=== PATIENT | male | born 1985 ===

== ENCOUNTER 2016-12-19 04:56 | Observation (INO) | payer MEDICAID ==
--- NOTE | 2016-12-19 05:15 | C.PDOC ---
History Of Present Illness Patient was brought to the ED by ambulance following a suicide attempt by hanging. 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 Patient's mother stepped outside of the house, when she went back in saw patient wrapping cord around his neck and jumped off railing. Mother was able to dislodge the cord and patient dropped one food to the ground. Patient denies any other complaints at this time. Time Seen by Provider: 12/19/16 05:10 Chief Complaint (Nursing): Psychiatric Evaluation History Per: Patient, Family History/Exam Limitations: no limitations Suicide/Self Injury Attempted (Context): Other (hanging ) Associated Symptoms: Depression, Suicidal Thoughts, Suicidal Plan Recent travel outside of the [place]: No Past Medical History Reviewed: Historical Data, Nursing Documentation, Vital Signs Vital Signs: Last Vital Signs Temp 97.7 F 12/19/16 05:04 Pulse 90 12/19/16 05:04 Resp 16 12/19/16 05:04 BP 135/90 12/19/16 05:04 Pulse Ox 97 12/19/16 05:55 - Medical History PMH: Depression Family History: States: No Known Family Hx - Social History Hx Alcohol Use: Yes Hx Substance Use: Yes - Immunization History Hx Tetanus Toxoid Vaccination: No Hx Influenza Vaccination: No Hx Pneumococcal Vaccination: No Review Of Systems Constitutional: Negative for: Fever, Chills, Sweats Eyes: Negative for: Vision Change Cardiovascular: Negative for: Chest Pain, Palpitations Respiratory: Negative for: Cough, Shortness of Breath Gastrointestinal: Negative for: Nausea, Vomiting, Abdominal Pain, Diarrhea Psych: Positive for: Depression, Suicidal ideation Physical Exam - Physical Exam Appears: Non-toxic, No Acute Distress Skin: Warm, Dry Head: Atraumatic Eye(s): bilateral: Normal Inspection, PERRL, EOMI Ear(s): Bilateral: Normal Oral Mucosa: Moist Neck: Supple (no evidence of hernandez on neck) Cardiovascular: Rhythm Regular Respiratory: No Rales, No Rhonchi, No Stridor, No Wheezing Gastrointestinal/Abdominal: Soft, No Tenderness, No Distention, No Guarding, No Rebound Back: Normal Inspection Extremity: No Tenderness, No Pedal Edema Extremity: Bilateral: Normal Color And Temperature Neurological/Psych: Oriented x3, Normal Speech, Normal Cognition, Other ( weakness to right side of the body ) Gait: With Assistance Additional Physical Exam Comments: Tolerating own secretions. ED Course And Treatment - Laboratory Results Result Diagrams: 12/19/16 05:33 12/19/16 05:33 ECG: Interpreted By Me O2 Sat by Pulse Oximetry: 97 Pulse Ox Interpretation: Normal - Radiology CXR: Interpreted by Me, Viewed By Me CXR Interpretation: No: Infiltrates, Fracture, Pnemothorax Progress Note: pt self removed the collar prior to ct imaging ED OBSERVATION Date of observation admission: 12/19/16 Time of observation admission: 06:47 Disposition Counseled Patient/Family Regarding: Studies Performed, Diagnosis - Disposition Disposition Time: 05:15 Condition: UNKNOWN - Clinical Impression Clinical Impression: Suicide attempt - Scribe Statement The provider has reviewed the documentation as recorded by the Scribe Floresita Atkinson All medical record entries made by the Scribe were at my direction and personally dictated by me. I have reviewed the chart and agree that the record accurately reflects my personal performance of the history, physical exam, medical decision making, and the department course for this patient. I have also personally directed, reviewed, and agree with the discharge instructions and disposition.
[2016-12-19 05:29] LABS: RBC URINE < 1 /hpf (0-3); URINE BACTERIA RARE (<OCC); URINE BILIRUBIN NEGATIVE (NEGATIVE); URINE BLOOD NEGATIVE (NEGATIVE); URINE COLOR Colorless (YELLOW); URINE GLUCOSE (UA) NORMAL (Normal); URINE KETONE NEGATIVE (NEGATIVE); URINE LEUKOCYTE ESTERASE NEG Leu/uL (Negative); URINE PROTEIN NEGATIVE (NEGATIVE); URINE UROBILINOGEN NORMAL mg/dL (0.2-1.0); WBC URINE 3 /hpf (0-5)
[2016-12-19 05:36] LABS: BASO # 0.1 K/uL (0.0-0.2); BASO % 0.9 % (0.0-2.0); EOS # 0.1 K/uL (0.0-0.7); EOS % 1.6 % (0.0-4.0); HEMATOCRIT 42.2 % (35.0-51.0); LYMPH # 3.4 K/uL (1.0-4.3); LYMPH % 43.4 % (20.0-40.0); MEAN CELL VOLUME 88.2 fL (80.0-94.0); MEAN CORPUSCULAR HEMOGLOBIN 30.8 pg (27.0-31.0); MEAN CORPUSCULAR HGB CONC 34.9 g/dL (33.0-37.0); MEAN PLATELET VOLUME 7.4 fL (7.2-11.7); MONO # 0.4 K/uL (0.0-0.8); MONO % 5.6 % (0.0-10.0); RED CELL DISTRIBUTION WIDTH 13.1 % (11.5-14.5); WHITE BLOOD COUNT 7.8 K/uL (4.8-10.8)
[2016-12-19 05:46] LABS: CHLORIDE 101 mmol/L (98-107)
[2016-12-19 05:47] LABS: SODIUM 143 mmol/L (132-148)
[2016-12-19 05:48] LABS: POTASSIUM 3.8 mmol/L (3.6-5.2)
[2016-12-19 05:50] LABS: ALB/GLOB RATIO 1.8 (1.0-2.1); ALKALINE PHOSPHATASE 95 U/L (38-126); ALT/SGPT 49 U/L (21-72); AST/SGOT 61 U/L (17-59); BILIRUBIN,TOTAL 0.4 mg/dL (0.2-1.3); BLOOD UREA NITROGEN 7 mg/dL (9-20); CARBON DIOXIDE 27 mmol/L (22-30); GFR AFRICAN-AMERICAN > 60; GLUCOSE,RANDOM 106 mg/dL (75-110); TOTAL PROTEIN 7.8 g/dL (6.3-8.3)
[2016-12-19 05:51] LABS: ALCOHOL SERUM 199 mg/dl (0-10); CALCIUM 8.8 mg/dl (8.6-10.4)
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
--- NOTE | 2016-12-19 07:21 | RAD ---
PROCEDURE: CHEST RADIOGRAPH, 1 VIEW HISTORY: Detox/Psy COMPARISON: None available. FINDINGS: LUNGS: Clear. PLEURA: No pneumothorax or pleural fluid seen. CARDIOVASCULAR: Normal. OSSEOUS STRUCTURES: No significant abnormalities. VISUALIZED UPPER ABDOMEN: Normal. OTHER FINDINGS: None. IMPRESSION: No active disease.
[2016-12-19 08:55] VITALS: BP 120/78; PULSE 94; RESP 18; TEMP 97.5; O2SAT 97
== END 2016-12-19 08:44 | disposition home or self-care (01) ==
LOC: C.ER 04:56 → C.9OBSV 06:46
PROVIDERS: ADMIT Emergency Medicine; ATTEND Emergency Medicine
DX: F10.120 Alcohol abuse with intoxication, uncomplicated (principal); T14.91 Suicide attempt; F14.10 Cocaine abuse, uncomplicated; Y90.6 Blood alcohol level of 120-199 mg/100 ml; I69.251 Hemiplegia and hemiparesis following other nontraumatic intracranial hemorrhage affecting right dominant side
CPT/HCPCS: 70450; 71010; 72125; 80053; 80320; 80324; 80345; 80346; 80349; 80353; 80358; 80361; 81001; 83992; 85025; 99285; G0378

== ENCOUNTER 2017-01-30 08:17 | Inpatient (IN) | payer MEDICAID, OTHER ==
[2017-01-30 08:17] VITALS: BMI 26.6
--- NOTE | 2017-01-30 08:37 | C.PDOC ---
History Of Present Illness 31-year-old male, presents to the emergency department requesting detox from EtOH. Patients last use was 04:00 this morning. He notes using Marijuana. States he used cocaine four days ago. Patient is currently asymptomatic. REQUESTING ETOH DETOX. LAST USE @ 0400. +MARIJUANA, LAST COCAINE 4 DAYS AGO. CURRENTLY ASYMPT EXAM NO S/S ACUTE INTOX, WITHDRAWAL Time Seen by Provider: 01/30/17 08:31 Chief Complaint (Nursing): Substance Abuse History Per: Patient History/Exam Limitations: no limitations Past Medical History Reviewed: Historical Data, Nursing Documentation, Vital Signs Vital Signs: Last Vital Signs Temp 98.3 F 01/30/17 11:00 Pulse 75 01/30/17 11:00 Resp 18 01/30/17 11:00 BP 116/72 01/30/17 11:00 Pulse Ox 98 01/30/17 11:00 - Medical History PMH: Depression, HTN Denies: Diabetes, Hepatitis, HIV, Seizures, Sexually Transmitted Disease - [facility] Procedures MEDICATION MANAGEMENT (12/19/16) Family History: States: No Known Family Hx - Social History Hx Alcohol Use: Yes Hx Substance Use: Yes - Immunization History Hx Tetanus Toxoid Vaccination: No Hx Influenza Vaccination: No Hx Pneumococcal Vaccination: No Review Of Systems Except As Marked, All Systems Reviewed And Found Negative. Constitutional: Negative for: Fever Cardiovascular: Negative for: Chest Pain, Palpitations Respiratory: Negative for: Shortness of Breath Psych: Negative for: Suicidal ideation Physical Exam - Physical Exam Appears: Non-toxic, No Acute Distress, Other (Calm, cooperative. No acute signs or sx of acute withdrawal.) Eye(s): bilateral: Normal Inspection Oral Mucosa: Moist Neck: Normal ROM Respiratory: No Accessory Muscle Use Extremity: Normal ROM ED Course And Treatment - Laboratory Results Result Diagrams: 01/30/17 08:59 01/30/17 08:59 O2 Sat by Pulse Oximetry: 95 Disposition Counseled Patient/Family Regarding: Studies Performed, Diagnosis - Disposition Disposition: HOSPITALIZED Disposition Time: 11:33 Condition: STABLE - POA Present On Arrival: None - Clinical Impression Clinical Impression: Alcohol use disorder - PA / LENS EDGER / Resident Statement MD/DO has reviewed & agrees with the documentation as recorded. - Scribe Statement The provider has reviewed the documentation as recorded by the Scribe (Dayanna Wilburn) All medical record entries made by the Scribe were at my direction and personally dictated by me. I have reviewed the chart and agree that the record accurately reflects my personal performance of the history, physical exam, medical decision making, and the department course for this patient. I have also personally directed, reviewed, and agree with the discharge instructions and disposition. Decision To Admit - Pt Status Changed To: Hospital Disposition Of: Inpatient - Admit Certification Admit to Inpatient:: After my assessment, the patient will require hospitalization for at least two midnights. This is because of the severity of symptoms shown, intensity of services needed, and/or the medical risk in this patient being treated as an outpatient. - InPatient: Physician Admission Certification: I certify that this patient requires 2 or more midnights of care for the following reason:: SEE NOTE - . Bed Request Type: Detox Admitting Physician: Brook Anderson Patient Diagnosis: Alcohol use disorder
[2017-01-30 09:05] LABS: BASO # 0.1 K/uL (0.0-0.2); EOS # 0.1 K/uL (0.0-0.7); EOS % 1.4 % (0.0-4.0); LYMPH # 4.1 K/uL (1.0-4.3); LYMPH % 51.5 % (20.0-40.0); MEAN CELL VOLUME 90.2 fL (80.0-94.0); MEAN CORPUSCULAR HEMOGLOBIN 30.8 pg (27.0-31.0); MEAN CORPUSCULAR HGB CONC 34.2 g/dL (33.0-37.0); MEAN PLATELET VOLUME 7.7 fL (7.2-11.7); MONO # 0.4 K/uL (0.0-0.8); MONO % 5.5 % (0.0-10.0); NEUT # 3.3 K/uL (1.8-7.0); NEUT % 40.6 % (50.0-75.0); NRBC % 0.1 % (0.0-2.0); RBC 4.86 Mil/uL (4.40-5.90); RED CELL DISTRIBUTION WIDTH 13.3 % (11.5-14.5); WHITE BLOOD COUNT 8.1 K/uL (4.8-10.8)
[2017-01-30 09:10] LABS: ALBUMIN 4.3 g/dL (3.5-5.0)
[2017-01-30 09:13] LABS: ALB/GLOB RATIO 1.3 (1.0-2.1); AST/SGOT 37 U/L (17-59); GFR AFRICAN-AMERICAN > 60; GFR NON-AFRICAN AMERICAN > 60
[2017-01-30 09:14] LABS: ALT/SGPT 36 U/L (21-72); BLOOD UREA NITROGEN 13 mg/dL (9-20); CALCIUM 8.9 mg/dl (8.6-10.4)
[2017-01-30 10:45] LABS: SQUAMOUS EPITHIAL < 1 /hpf (0-5); URINE BILIRUBIN NEGATIVE (NEGATIVE); URINE BLOOD NEGATIVE (NEGATIVE); URINE CLARITY Clear (Clear); URINE COLOR Yellow (YELLOW); URINE GLUCOSE (UA) NORMAL (Normal); URINE LEUKOCYTE ESTERASE NEG Leu/uL (Negative); URINE NITRATE NEGATIVE (NEGATIVE); URINE PROTEIN NEGATIVE (NEGATIVE); URINE UROBILINOGEN NORMAL mg/dL (0.2-1.0)
[2017-01-30 10:52] LABS: BARBITURATES, UR NEGATIVE (NEGATIVE)
[2017-01-30 10:53] LABS: BENZODIAZEPINES, UR NEGATIVE (NEGATIVE)
[2017-01-30 10:59] LABS: OPIATES, UR NEGATIVE (NEGATIVE)
[2017-01-30 11:00] LABS: PHENCYCLIDINE, UR NEGATIVE (NEGATIVE)
[2017-01-30] MEDS ORDERED: Aluminum Hydroxide/Magnesium Hydroxide Susp (30 mL) PO PRN (12:55)
--- NOTE | 2017-01-30 12:55 | PCM.PSYCH ---
Initial Psychiatric Evaluation - Initial Psychiatric Evaluation Type of Admission: Voluntary Legal Status: Capacity Chief Complaint (in patient's own words): I came in to get help History of Present Illness and Precipitating Events: This is a 31 years old HM, who lives with his girlfriend, currently unemployed, came to the hospital to get help in alcohol detox. Patient reports of long history of drinking. Patient states that he drinks almost 20-30 12 oz beers, and 1-4 pints of vodka on a daily basis. Yesterday he consumed almost 15 cans of beers along with 2 pints of vodka and started feeling uncomfortable, so he came to ED to get help in detox. Patient reports withdrawal symptoms including headache, anxiety, and sweating. Patient reports irritable mood but denies any feelings of hopelessness or helplessness, denies any suicidal ideation or homicidal ideation. Denies any psychotic or manic symptoms. Denies any other substance abuse. Longest period of sobriety: 10 year from [id number]. Past psychiatric history Denies any history of any inpatient psychiatric hospitalizations, and denies any history of detox or rehabilitation in the past. Past medical history HTN Current Medications: Active Medications Generic Name Dose Route Start Last Admin Trade Name Freq PRN Reason Stop Dose Admin Chlordiazepoxide 25 mg 01/30/17 12:53 Librium PO Q4H PRN Alcohol Withdrawal Chlordiazepoxide 0 mg 01/30/17 12:53 Librium PO 02/05/17 12:52 Q6 EUNICE Taper Clonidine HCl 0.1 mg 01/30/17 12:53 Catapres PO Q4H PRN Symptoms of alcohol withdrawl Folic Acid 1 mg 01/30/17 13:00 Folic Acid PO DAILY EUNICE Gabapentin 100 mg 01/30/17 14:00 Neurontin PO TID EUNICE Multivitamins 1 tab 01/30/17 13:00 Hexavitamin PO DAILY EUNICE Thiamine HCl 100 mg 01/30/17 13:00 Vitamin B1 Tab PO DAILY EUNICE Trazodone HCl 50 mg 01/30/17 12:53 Desyrel PO HS PRN Insomnia Past Psychiatric History - Past Psychiatric History Previous Treatment History: Inpatient Pertinent Medical Hx (Current Medical&Sleep Prob, Allergies): Allergies Allergy/AdvReac Type Severity Reaction Status Date / Time No Known Allergies Allergy Verified 01/30/17 08:20 No Known Home Med 12/19/16 Review of Systems - Review of Systems All systems: reviewed and no additional remarkable complaints except - Psychiatric Psychiatric: Anxiety, Irritability Mental Status Examination - Personal Presentation Personal Presentation: Looks stated age - Affect Affect: Constricted - Motor Activity Motor Activity: Calm - Reliability in Providing Information Reliability in Providing Information: Good - Speech Speech: Organized - Mood Mood: Anxious - Formal Thought Process Formal Thought Process: No Impairment - Obsessions/Compulsions Obsessions: No Compulsions: No - Cognitive Functions Orientation: Person, Place, Situation, Time Sensorium: Alert Attention/Concentration: Attentive Abstract Thinking: [place] Estimate of Intelligence: Below average Judgement: Imparied, as evidence by: Poor judgement, Intact, as evidence by: Insight regarding need for hospitalization - Risk Risk: Withdrawal, Diminished functioning - Strength & Assets Inventory Strength & Assets Inventory: Family support DSM 5 DX - DSM 5 DSM 5 Diagnosis: Alcohol use disorder severe Alcohol withdrawal uncomplicated - Recommended/Plan of Treatment Treatment Recommendations and Plan of Treatment: Alcohol use disorder severe CBT Psychoeducation Supportive therapy, individual therapy Use WI for abstinence Alcohol withdrawal uncomplicated CBT Psychoeducation Supportive therapy, individual therapy Librium when necessary Start Librium taper Start folic acid/thiamine/multivitamin Neurontin 1 mg by mouth twice a day Insomnia Trazodone 50 mg by mouth daily at bedtime - Smoking Cessation Smoking Cessation Initiated: No
[2017-01-30] MEDS: Multiple Vitamins Tab PO SCH (13:43)
[2017-01-31] MEDS: Multiple Vitamins Tab PO SCH (09:50)
[2017-01-31 10:12] VITALS: RESP 18
--- NOTE | 2017-01-31 13:29 | PCM.PYCHPN ---
Psychiatric Progress Note - Psychiatric Progress Note Patient seen today, length of contact: 17 MIN Patient Chief Complaint: "I want to leave" Problems Identified/Issues Discussed: The pt is seen, chart reviewed His detox was going OK but then he suddenly asked to leave b/c he didn;t like t here and that he was "fine" Risks of leaving AMA discussed, incl. withdrawal and relapse, seizures and even but he did not believe or agree with anything. He as very opinionated, devaluating ("all we do is sit here") and rigid. 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 as he wanted to leave AMA - he then changed his mind and decided to stay "until (he) gets medical clearance." Medication Change: Yes (detox changes daily) Medical Record Reviewed: Yes Mental Status Examination - Cognitive Function Orientation: Person, Place, Situation, Time Memory: Intact Attention: WNL Concentration: Poor Association: WNL Fund of Knowledge: WNL - Mood Mood: Anxious - Affect Affect: Constricted - Speech Speech: Appropriate - Formal Thought Process Formal Thought Process: No Impairment - Suicidal Ideation Suicidal Ideation: No - Homicidal Ideation Homicidal Ideation: No Goal/Treatment Plan - Goal/Treatment Plan Need for Continued Stay: Discharge may exacerbated symptoms, Severe functional impairment Progress Toward Problem(s) and Goals/Treatment Plan: Librium detox Gabapentin for augmentation As needed meds and vitamins Attend groups and activities NH for abstinence and CBT for relapse prevention Support and psychoeducation Consider and encourage MAT Refer to after care IF he stays Estimated Date of D/C: 11/04/16
[2017-02-01 09:50] VITALS: BP 113/74; PULSE 82; TEMP 98; O2SAT 97
--- NOTE | 2017-02-01 11:01 | PCM.PYCHDC ---
Mental Status Examination - Mental Status Examination Orientation: Person, Place, Situation, Time Memory: Intact Mood: Neutral Affect: Constricted Speech: Soft Attention: WNL Concentration: WNL Association: WNL Fund of Knowledge: WNL Formal Thought Process: No Impairment Description of patient's judgement and insight: partially impaired Psychotic Thoughts and Behaviors: denies any AVH Suicidal Ideation: No Current Homicidal Ideation?: No Discharge Summary - Discharge Note Reason for Hospitalization: This is a 31 years old HM, who lives with his girlfriend, currently unemployed, came to the hospital to get help in alcohol detox. Patient reports of long history of drinking. Patient states that he drinks almost 20-30 12 oz beers, and 1-4 pints of vodka on a daily basis. Yesterday he consumed almost 15 cans of beers along with 2 pints of vodka and started feeling uncomfortable, so he came to ED to get help in detox. Patient reports withdrawal symptoms including headache, anxiety, and sweating. Patient reports irritable mood but denies any feelings of hopelessness or helplessness, denies any suicidal ideation or homicidal ideation. Denies any psychotic or manic symptoms. Denies any other substance abuse. Longest period of sobriety: 10 year from [id number]. Consultations:: List each consultation separately and include: 1. Reason for request. 2. Findings. 3. Follow-up Summary of Hospital Course include:: 1. Description of specific treatment plan utilized for patients during their course of treatmen. 2. Summarize the time- course for resolution of acute symptoms and/or regressed behaviors. 3. Describe issues identified and worked on during hospitalization. 4. Describe medication utilized. 5. Describe medical problems identified and treated. 6. Reassessment of suicide risk Summary of Hospital Course: During the course of his stay, patient (pt) started progressively improving and he no longer remained anxious and irritable. He tolerated the withdrawal protocol very well. He didnt have any shakes, sweating, tremors or cramps or any other withdrawal symptoms upon discharge. He started attending groups and meetings and started socializing. He denied any feelings of hopelessness, helplessness, and worthlessness, denied any problem with the sleep or appetite, denied suicidal ideation or homicidal ideation. Pt denied any auditory or visual hallucinations. Patient remained calm and cooperative and remained compliant with the medications. Patient tolerated the detox medications very well and denied any side effects. - Final Diagnosis (DSM 5) Condition upon Discharge: STABLE DSM 5: Alcohol use disorder severe Alcohol withdrawal uncomplicated Disposition: AGAINST MEDICAL ADVICE Follow-up Treatment Plan: Education: Pt was educated and counseled about the risks and benefits of taking and not taking medications. Pt was educated and counseled about the risks of drinking and abusing drugs. Pt was educated and counseled to go to the ER or call 911 if pt develop suicidal ideation or homicidal ideation, worsening of symptoms or severe side effects of the meds. - Smoking Cessation Smoking Cessation Medication prescribed: No - Antipsychotic Medications Pt discharged on 2 or more routine antipsychotic medications: No
== END 2017-02-01 10:00 | disposition left against medical advice (07) | DRG 749 ==
LOC: C.ER 08:17 → C.9E 11:34 → C.7D 11:55
PROVIDERS: ADMIT Psychiatry & Neurology Psychiatry; ATTEND Psychiatry & Neurology Psychiatry
PROC: HZ2ZZZZ Detoxification Services for Substance Abuse Treatment (ICD-10-PCS; principal; 2017-01-30)
PROC: HZ52ZZZ Individual Psychotherapy for Substance Abuse Treatment, Cognitive-Behavioral (ICD-10-PCS; 2017-01-30)
PROC: HZ59ZZZ Individual Psychotherapy for Substance Abuse Treatment, Supportive (ICD-10-PCS; 2017-01-30)
PROC: HZ56ZZZ Individual Psychotherapy for Substance Abuse Treatment, Psychoeducation (ICD-10-PCS; 2017-01-30)
DX: F10.230 Alcohol dependence with withdrawal, uncomplicated (principal); I10 Essential (primary) hypertension; Y90.1 Blood alcohol level of 20-39 mg/100 ml; G47.00 Insomnia, unspecified; F12.90 Cannabis use, unspecified, uncomplicated; F14.90 Cocaine use, unspecified, uncomplicated; F32.9 Major depressive disorder, single episode, unspecified

== ENCOUNTER 2017-02-04 04:44 | Emergency (ER) | payer SELFPAY ==
[2017-02-04 04:44] VITALS: BMI 26.6
[2017-02-04 04:56] VITALS: BP 121/81; PULSE 96; RESP 16; TEMP 98.3; O2SAT 97
--- NOTE | 2017-02-04 05:21 | C.PDOC ---
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 Denies any physical complaints. Time Seen by Provider: 02/04/17 04:57 Chief Complaint (Nursing): Substance Abuse History Per: Patient History/Exam Limitations: no limitations Onset/Duration Of Symptoms: Days Current Symptoms Are (Timing): Still Present Suicide/Self Injury Attempted (Context): None Modifying Factor(s): Alcohol Associated Symptoms: denies: Depression, Suicidal Thoughts, Suicidal Plan Involuntary Hold By: None Recent travel outside of the [place]: No Past Medical History Reviewed: Historical Data, Nursing Documentation, Vital Signs Vital Signs: Last Vital Signs Temp 98.3 F 02/04/17 04:54 Pulse 96 H 02/04/17 04:54 Resp 16 02/04/17 04:54 BP 121/81 02/04/17 04:54 Pulse Ox 97 02/04/17 05:42 - Medical History PMH: Depression, HTN (Dx never followed up meds) Surgical History: No Surg Hx - [facility] Procedures DETOXIFICATION SERVICES FOR SUBSTANCE ABUSE TREATMENT (01/30/17) INDIV PSYCHOTHERAPY FOR SUBSTANCE ABUSE TREATMENT, SUPPORT (01/30/17) INDIV PSYCHOTHERAPY FOR SUBSTANCE ABUSE, COGNITIV BEHAVIORAL (01/30/17) INDIV PSYCHOTHERAPY FOR SUBSTANCE ABUSE, PSYCHOEDUCATION (01/30/17) MEDICATION MANAGEMENT (12/19/16) Family History: States: Unknown Family Hx - Social History Hx Alcohol Use: Yes Hx Substance Use: Yes - Immunization History Hx Tetanus Toxoid Vaccination: No Hx Influenza Vaccination: No Hx Pneumococcal Vaccination: No Review Of Systems Constitutional: Negative for: Fever, Chills Gastrointestinal: Negative for: Nausea, Vomiting Physical Exam - Physical Exam Appears: Non-toxic, No Acute Distress Skin: Normal Color, Warm, Dry Head: Atraumatic, Normacephalic Oral Mucosa: Moist Chest: Symmetrical, No Tenderness Cardiovascular: Rhythm Regular, No Murmur Respiratory: Normal Breath Sounds, No Rales, No Rhonchi, No Wheezing Neurological/Psych: Oriented x3, Normal Speech, Normal Cognition ED Course And Treatment O2 Sat by Pulse Oximetry: 97 (Room air) Pulse Ox Interpretation: Normal Progress Note: Case discussed with Crisis, no detox beds available. Patient given list of available detox sites in the area. Also was advised to call crisis dept for availability of beds Disposition Counseled Patient/Family Regarding: Diagnosis, Need For Followup, Rx Given - Disposition Disposition: HOME/ ROUTINE Disposition Time: 05:17 Condition: STABLE Additional Instructions: Please follow up with PMD Call CRISIS OFFICE at [phone] for bed availability Return to ER if worse Instructions: Polysubstance Abuse (ED) - Clinical Impression Clinical Impression: Drug dependence - Scribe Statement The provider has reviewed the documentation as recorded by the Veronicaibdeirdre Santiago All medical record entries made by the Yamile were at my direction and personally dictated by me. I have reviewed the chart and agree that the record accurately reflects my personal performance of the history, physical exam, medical decision making, and the department course for this patient. I have also personally directed, reviewed, and agree with the discharge instructions and disposition.
== END 2017-02-04 05:40 | disposition home or self-care (01) ==
LOC: C.ER 04:44
DX: F14.20 Cocaine dependence, uncomplicated (principal)

== ENCOUNTER 2017-02-04 07:35 | Emergency (ER) | payer OTHER ==
[2017-02-04 07:35] VITALS: BMI 26.6
[2017-02-04 07:54] VITALS: BP 127/88; PULSE 83; RESP 18; TEMP 97.8; O2SAT 99
--- NOTE | 2017-02-04 08:10 | C.PDOC ---
History Of Present Illness 31 y/o male presents to ED requesting detox for alcohol. Patient reports last drink was a few hours prior to arrival. Patient recently discharged from [facility] after being in detox program. Denies suicidal or homicidal ideation. Time Seen by Provider: 02/04/17 07:54 Chief Complaint (Nursing): Substance Abuse History Per: Patient History/Exam Limitations: no limitations Onset/Duration Of Symptoms: Persistent Current Symptoms Are (Timing): Still Present Modifying Factor(s): Alcohol Associated Symptoms: denies: Suicidal Thoughts, Suicidal Plan Recent travel outside of the [place]: No Past Medical History Reviewed: Historical Data, Nursing Documentation, Vital Signs Vital Signs: Last Vital Signs Temp 97.8 F 02/04/17 07:50 Pulse 83 02/04/17 07:50 Resp 18 02/04/17 07:50 BP 127/88 02/04/17 07:50 Pulse Ox 99 02/04/17 08:16 - Medical History PMH: Depression, HTN (Dx never followed up meds) - [facility] Procedures DETOXIFICATION SERVICES FOR SUBSTANCE ABUSE TREATMENT (01/30/17) INDIV PSYCHOTHERAPY FOR SUBSTANCE ABUSE TREATMENT, SUPPORT (01/30/17) INDIV PSYCHOTHERAPY FOR SUBSTANCE ABUSE, COGNITIV BEHAVIORAL (01/30/17) INDIV PSYCHOTHERAPY FOR SUBSTANCE ABUSE, PSYCHOEDUCATION (01/30/17) MEDICATION MANAGEMENT (12/19/16) Family History: States: Unknown Family Hx - Social History Hx Alcohol Use: Yes Hx Substance Use: Yes - Immunization History Hx Tetanus Toxoid Vaccination: Yes Hx Influenza Vaccination: No Hx Pneumococcal Vaccination: No Review Of Systems Except As Marked, All Systems Reviewed And Found Negative. Constitutional: Negative for: Fever, Chills Cardiovascular: Negative for: Chest Pain, Palpitations Respiratory: Negative for: Cough, Shortness of Breath Gastrointestinal: Negative for: Nausea, Vomiting, Abdominal Pain Skin: Negative for: Rash Neurological: Negative for: Weakness, Numbness Psych: Negative for: Withdrawal Physical Exam - Physical Exam Appears: Non-toxic, No Acute Distress, Other (no tremors or signs of withdrawal) Skin: Warm, Dry Head: Atraumatic, Normacephalic Eye(s): bilateral: Normal Inspection Chest: Symmetrical Cardiovascular: Rhythm Regular Respiratory: Normal Breath Sounds, No Rales, No Rhonchi, No Wheezing Gastrointestinal/Abdominal: Soft, No Tenderness, No Guarding, No Rebound Back: Normal Inspection Extremity: Normal ROM, Capillary Refill (< 2 sec.) Neurological/Psych: Oriented x3, Normal Speech, Normal Cognition ED Course And Treatment O2 Sat by Pulse Oximetry: 99 (RA) Pulse Ox Interpretation: Normal Disposition - Disposition Referrals: Alcoholics Anonymous [Outside] [facility] [Outside] [facility] [Outside] Disposition: HOME/ ROUTINE Disposition Time: 08:38 Condition: STABLE Forms: General Discharge Instructions - Clinical Impression Clinical Impression: Alcohol abuse - Scribe Statement The provider has reviewed the documentation as recorded by the Yamile Bobby Provider Attestation: All medical record entries made by the Yamile were at my direction and personally dictated by me. I have reviewed the chart and agree that the record accurately reflects my personal performance of the history, physical exam, medical decision making, and the department course for this patient. I have also personally directed, reviewed, and agree with the discharge instructions and disposition.
== END 2017-02-04 08:38 | disposition home or self-care (01) ==
LOC: C.ER 07:35
DX: F10.10 Alcohol abuse, uncomplicated (principal); Y90.9 Presence of alcohol in blood, level not specified

== ENCOUNTER 2017-04-06 01:36 | Inpatient (IN) | payer MEDICAID, OTHER ==
[2017-04-06 01:36] VITALS: BMI 26.6
[2017-04-06 01:49] VITALS: RESP 20
--- NOTE | 2017-04-06 02:08 | C.PDOC ---
History Of Present Illness patient presents with chest pain after drinking a few beers after work.,He states that in the ambulance started to feel numbness over the left side of his body, States that he has had a previous stroke when he was 17 years old. Was on coumadin and now only on aspirin. No slurred speech. Patient also stated that he did cocaine about 2-3 days ago and has been smoking marijuana Time Seen by Provider: 04/06/17 02:08 Chief Complaint (Nursing): Chest Pain History Per: Patient History/Exam Limitations: no limitations Onset/Duration Of Symptoms: Hrs Current Symptoms Are (Timing): Still Present Context: Other (drank a few beers) Severity: Severe Pain Scale Rating Of: 6 Quality: Dull Associated Symptoms: denies: Nausea, Dyspnea Modifying Factors: None Exacerbating Factors: None Alleviating Factors: None Recent travel outside of the [place]: No Additional History Per: Patient Past Medical History Reviewed: Historical Data, Nursing Documentation, Vital Signs Vital Signs: Last Vital Signs Temp 97.8 F 04/06/17 01:45 Pulse 88 04/06/17 01:45 Resp 20 04/06/17 01:45 BP 121/72 04/06/17 01:45 Pulse Ox 98 04/06/17 03:26 - Medical History PMH: Depression, HTN Denies: Diabetes, Hepatitis, HIV, Chronic Kidney Disease, Seizures, Sexually Transmitted Disease - [facility] Procedures DETOXIFICATION SERVICES FOR SUBSTANCE ABUSE TREATMENT (01/30/17) INDIV PSYCHOTHERAPY FOR SUBSTANCE ABUSE TREATMENT, SUPPORT (01/30/17) INDIV PSYCHOTHERAPY FOR SUBSTANCE ABUSE, COGNITIV BEHAVIORAL (01/30/17) INDIV PSYCHOTHERAPY FOR SUBSTANCE ABUSE, PSYCHOEDUCATION (01/30/17) MEDICATION MANAGEMENT (12/19/16) Family History: States: No Known Family Hx - Social History Hx Alcohol Use: Yes Hx Substance Use: Yes - Immunization History Hx Tetanus Toxoid Vaccination: Yes Hx Influenza Vaccination: Yes Hx Pneumococcal Vaccination: No Review Of Systems Constitutional: Negative for: Fever, Chills Eyes: Negative for: Redness ENT: Negative for: Throat Pain Cardiovascular: Positive for: Chest Pain. Negative for: Palpitations, Orthopnea Respiratory: Negative for: Shortness of Breath Gastrointestinal: Negative for: Nausea, Vomiting, Abdominal Pain Genitourinary: Negative for: Dysuria Musculoskeletal: Negative for: Back Pain Skin: Negative for: Rash, Lesions Neurological: Positive for: Weakness (left side). Negative for: Headache, Dizziness Psych: Negative for: Anxiety Physical Exam - Physical Exam Appears: In Acute Distress Skin: Warm, Dry Head: Atraumatic, Normacephalic Eye(s): bilateral: Normal Inspection, PERRL, EOMI Oral Mucosa: Moist Neck: Supple Chest: Symmetrical Cardiovascular: Rhythm Regular Respiratory: No Rales, No Rhonchi, No Wheezing Gastrointestinal/Abdominal: Soft, No Tenderness, No Distention Back: No CVA Tenderness Extremity: Bilateral: Normal Color And Temperature Pulses: Left Dorsalis Pedis: Normal, Right Dorsalis Pedis: Normal Neurological/Psych: Oriented x3, Normal Speech, Normal Cognition Gait: Unable To Assess Extremity: Left: Drift Before 10 Secs, Upper: Drift Before 10 Secs, Lower: Drift Before 10 Secs ED Course And Treatment - Laboratory Results Result Diagrams: 04/06/17 02:29 04/06/17 02:29 ECG: Interpreted By Me, Viewed By Me ECG Rhythm: Sinus Rhythm (90), R BBB (incomplete), Nonspecific Changes (lahb) O2 Sat by Pulse Oximetry: 98 Pulse Ox Interpretation: Normal - Radiology CXR: Interpreted by Me, Viewed By Me CXR Interpretation: No: Infiltrates, Fracture, Pnemothorax Progress Note: upon lifting and dropping the left hand over the patient face, pt always moves the hand so in falls next to his head, not face. also, when holding both feet in my hand and asking to lift his right leg, pt puts pressure on the left leg as well. spoke with dr braswell 3:15AM -should consider tpa. spoke with the patient at length about TPA, benefits and risks and patient refused TPA.Is aware of the possible permanent disability. Pt is AAOX3 and competent Critical Care Time - Critical Care Note Total Time (in mins): 30 Documented critical care: time excludes all time spent performing seperately billable procedures. NIHSS Stroke Scale - Date/Time Evaluation Performed Date Performed: 04/06/17 Time Performed: 02:11 When Was NIHSS Performed: Baseline - How Severe is the Stoke Level of Consciousness: 0=Alert LOC to Questions: 0=Both comments correct LOC to commands: 0=Obeys both correctly Best Gaze: 0=Normal Visual: 0=No visual loss Facial: 0=Normal Motor Arm - Left: 2=Falls before 10 sec Motor Arm - Right: 0=No drift Motor Leg - Left: 2=Falls before 5 sec Motor Leg - Right: 0=No drift Limb Ataxia: 0=Absent Sensory: 0=Normal Best Language: 0=No aphasia Dysarthia: 0=Normal articulation Extinction & Inattention (Neglect): 0=Normal, no object Score: 4 Severity Of Stroke: 1-4= Minor Stroke rTPA Inclusion/Exclusion - Refusal of Treatment Patient Refused Treatment: Yes - Inclusion Criteria for Altepase Patient is 18 years or Older: Yes The Clinical Diagnosis of Ischemic Stroke That is Causing a Potentially Disabling Neurological Deficit: Yes Time of Onset is Well Established to be Less Than 270 Minute Before Treatment Would Begin: Yes Risk/Benefit Discussed With Patient/Family Member Present: Yes Disposition Discussed With Dr.: Stan Frances Comment: accepted the pt on his service and took over the care at 3:35AM Counseled Patient/Family Regarding: Studies Performed, Diagnosis - Disposition Disposition: HOSPITALIZED Disposition Time: 02:08 Condition: GUARDED Forms: [facility] (Persian) - Clinical Impression Clinical Impression: Chest pain, CVA (cerebral vascular accident) Decision To Admit - Pt Status Changed To: Hospital Disposition Of: Inpatient - Admit Certification Admit to Inpatient:: After my assessment, the patient will require hospitalization for at least two midnights. This is because of the severity of symptoms shown, intensity of services needed, and/or the medical risk in this patient being treated as an outpatient. - InPatient: Physician Admission Certification: I certify that this patient requires 2 or more midnights of care for the following reason:: After my assessment, the patient will require hospitalization for at least two midnights. This is because of the severity of symptoms shown, intensity of services needed, and/or the medical risk in this patient being treated as an outpatient. - . Bed Request Type: Telemetry Admitting Physician: Stan Frances Patient Diagnosis: Chest pain, CVA (cerebral vascular accident)
[2017-04-06 02:34] LABS: BASO # 0.1 K/uL (0.0-0.2); BASO % 0.7 % (0.0-2.0); EOS % 0.1 % (0.0-4.0); HEMATOCRIT 43.5 % (35.0-51.0); LYMPH # 2.4 K/uL (1.0-4.3); LYMPH % 18.3 % (20.0-40.0); MEAN CORPUSCULAR HEMOGLOBIN 32.3 pg (27.0-31.0); MEAN CORPUSCULAR HGB CONC 35.5 g/dL (33.0-37.0); MEAN PLATELET VOLUME 7.6 fL (7.2-11.7); MONO # 0.8 K/uL (0.0-0.8); MONO % 5.9 % (0.0-10.0); RED CELL DISTRIBUTION WIDTH 12.7 % (11.5-14.5); WHITE BLOOD COUNT 13.1 K/uL (4.8-10.8)
[2017-04-06 02:35] LABS: INR 1.1
[2017-04-06 02:46] LABS: ALB/GLOB RATIO 1.3 (1.0-2.1); ALCOHOL SERUM 13 mg/dl (0-10); ALKALINE PHOSPHATASE 110 U/L (38-126); ALT/SGPT 77 U/L (21-72); AST/SGOT 57 U/L (17-59); BILIRUBIN,TOTAL 1.1 mg/dL (0.2-1.3); BLOOD UREA NITROGEN 11 mg/dL (9-20); CALCIUM 9.8 mg/dl (8.6-10.4); CARBON DIOXIDE 24 mmol/L (22-30); CHLORIDE 98 mmol/L (98-107); CHOLESTEROL 168 mg/dL (0-199); GFR AFRICAN-AMERICAN > 60; GLUCOSE,RANDOM 105 mg/dL (75-110); POTASSIUM 3.6 mmol/L (3.6-5.2); SODIUM 140 mmol/L (132-148)
--- NOTE | 2017-04-06 02:57 | CT ---
EXAM: CT Head Without Intravenous Contrast CLINICAL HISTORY: 31 years old, male; Signs and symptoms; Numbness / parasthesia; Left; Additional info: Chest pain TECHNIQUE: Axial computed tomography images of the head/brain without intravenous contrast. All CT scans at this facility use one or more dose reduction techniques, viz.: automated exposure control; ma/kV adjustment per patient size (including targeted exams where dose is matched to indication; i.e. head); or iterative reconstruction technique. Coronal and sagittal reformatted images were created and reviewed. COMPARISON: No relevant prior studies available. FINDINGS: Brain: No acute intracranial hemorrhage. No significant white matter disease. No edema. Ventricles: No significant ventriculomegaly. Bones: No acute displaced fracture. Sinuses: Unremarkable as visualized. No acute sinusitis. Mastoid air cells: Unremarkable as visualized. No mastoid effusion. IMPRESSION: No acute intracranial hemorrhage, or suspicious mass effect. Acute infarction may be CT occult within first 24 hours. If a focal deficit persists, consider followup CT or MRI for further evaluation.
[2017-04-06 07:26] LABS: THYROID STIMULATING HORMONE 0.92 mIU/L (0.46-4.68)
--- NOTE | 2017-04-06 07:48 | CP.PCM.PN ---
Subjective - Date & Time of Evaluation Date of Evaluation: 04/06/17 Time of Evaluation: 03:40 - Subjective Subjective: Patient seen ER after initial er eval and request for admission for new left arm and leg flaccid paralysis. Patient was awake and oriented, speak clearly, mentioned worked in [place], had 2 beers, c/o cp and called ambulance, in ambulance c /o left side numbness which progressed to left side flaccid weakness. Denied any pain, on request patient was not able to raise left arm or leg, left hand raised over the face would not fall on the face suggesting him having the control of the left arm. When raising right leg above the bed pressure felt beneath the left leg also while simultaneously raising the left and right leg patient, patient was actually able to provide resistance in the left leg. These exam finding suggest patient has control in the movements. PMH of stroke at age of 17, needing rehab as per the patient, CT didn't show any old stroke, h/o alcohol use 3 time/wk about 3 beers, smokes and has sniffed cocaine 3 days back. In ER he was offered tpa which he refused. Plan Echo, carotid doppler, MRI, brain, q4 neurochecks, ASA, gi/dvt prophylaxis , counselled about substance abuse, neurology consult. Objective - Vital Signs/Intake and Output Vital Signs (last 24 hours): Temp Pulse Resp BP Pulse Ox 97.8 F 79 20 143/83 98 04/06/17 04:45 04/06/17 05:15 04/06/17 04:45 04/06/17 04:45 04/06/17 04:45 Intake and Output: 04/06/17 04/06/17 06:59 18:59 Intake Total 120 Balance 120 - Medications Medications: Current Medications Aspirin (Aspirin Chewable) 81 mg PO DAILY EUNICE Ondansetron HCl (Zofran Inj) 4 mg IVP Q6H PRN PRN Reason: Nausea/Vomiting Pneumococcal Polyvalent Vaccine (Pneumovax 23 Vaccine) 0.5 ml IM .ONCE ONE Stop: 04/08/17 14:01 - Labs Labs: PT 11.8 SECONDS (9.7-12.2) 04/06/17 02:29 INR 1.1 04/06/17 02:29 APTT 28 SECONDS (21-34) 04/06/17 02:29
--- NOTE | 2017-04-06 09:44 | CP.PCM.HP ---
<Jefferson Ramirez - Last Filed: 04/06/17 10:02> History of Present Illness - History of Present Illness History of Present Illness: CC: Chest Pain HPI: Patient is a 31 year old male with past medical history of stroke (17 yrs old) who presents to the ED with chest pain that started around 12pm yesterday at work. Patient reports that his chest pain increased in intensity after he went to the bar after work (having 2-3 coronas). Patient describes his chest pain as a 7/10 chest pressure without radiation and not alleviated or worsened by anything. Patient reports that he experienced dizziness, tongue numbness, palpitations, diaphoresis, frontal headache, nausea, vomiting (yellow colored), but denies abdominal pain, diarrhea, constipation, urinary symptoms, back pain and flank pain. While in the ED, code stroke was called with patient experiencing left-side numbness without speech deficit and facial asymmetry. Patient later reported that he experienced left-sided numbness, tingling during his ride to the ED on the ambulance. On request patient was not able to raise left arm or leg, left hand raised over the face would not fall on the face suggesting him having the control of the left arm. Patient refused TPA. PMHX: History of CVA at 17 years old ( admitted to ICU for a month for left- sided numbness and weakness) PSHX: Denies FHx: Denies Medications: None Allergies: NKDA Social history: [employer], admits to smoking for 3 yrs (1Pack 2-4 days), 4-5 beers (2X/week), and cocaine use ( last use 3 days ago) Present on Admission - Present on Admission Any Indicators Present on Admission: No Review of Systems - Constitutional Constitutional: Headache. absent: Chills, Fever - EENT Ears: Dizziness - Cardiovascular Cardiovascular: Chest Pain, Diaphoresis, Lightheadedness, Palpitations. absent : Dyspnea - Respiratory Respiratory: Dyspnea, Dyspnea on Exertion - Gastrointestinal Gastrointestinal: Nausea, Vomiting. absent: Abdominal Pain, Constipation, Diarrhea - Genitourinary Genitourinary: absent: Dysuria, Pyuria, Urinary Frequency - Musculoskeletal Musculoskeletal: Limited Range of Motion, Numbness Additional comments: Left- side weakness and numbness - Neurological Neurological: Dizziness, Numbness, Headaches, Weakness Past Patient History - Infectious Disease Hx of Infectious Diseases: None - Past Medical History & Family History Past Medical History?: Yes - Past Social History Smoking Status: Light Smoker < 10 Cigarettes Daily - CARDIAC Hx Cardiac Disorders: Yes Hx Hypertension: Yes - PULMONARY Hx Respiratory Disorders: No Hx Tuberculosis: No - NEUROLOGICAL Hx Neurological Disorder: No Hx Seizures: No - HEENT Hx HEENT Problems: No - RENAL Hx Chronic Kidney Disease: No - ENDOCRINE/METABOLIC Hx Endocrine Disorders: No - HEMATOLOGICAL/ONCOLOGICAL Hx Blood Disorders: No Hx Human Immunodeficiency Virus (HIV): No - INTEGUMENTARY Hx Dermatological Problems: No - MUSCULOSKELETAL/RHEUMATOLOGICAL Hx Musculoskeletal Disorders: No Hx Falls: No - GASTROINTESTINAL Hx Gastrointestinal Disorders: No - GENITOURINARY/GYNECOLOGICAL Hx Genitourinary Disorders: No Hx Sexually Transmitted Disorders: No - PSYCHIATRIC Hx Psychophysiologic Disorder: Yes Hx Depression: Yes Hx Substance Use: Yes - SURGICAL HISTORY Hx Surgeries: No - ANESTHESIA Hx Anesthesia: No Meds Allergies/Adverse Reactions: Allergies Allergy/AdvReac Type Severity Reaction Status Date / Time No Known Allergies Allergy Verified 04/06/17 01:50 Physical Exam - Constitutional Appears: No Acute Distress - Head Exam Head Exam: ATRAUMATIC - Eye Exam Eye Exam: EOMI, Normal appearance, PERRL - Respiratory Exam Respiratory Exam: Clear to Auscultation Bilateral, NORMAL BREATHING PATTERN - Cardiovascular Exam Cardiovascular Exam: REGULAR RHYTHM, +S1, +S2 - GI/Abdominal Exam GI & Abdominal Exam: Normal Bowel Sounds, Soft - Extremities Exam Additional comments: Decreased left side UE AND LE strength - Neurological Exam Neurological exam: Alert, Oriented x3 - Psychiatric Exam Psychiatric exam: Anxious - Skin Skin Exam: Normal Color, Warm Results - Vital Signs Recent Vital Signs: Last Vital Signs Temp 97.7 F 04/06/17 07:00 Pulse 70 04/06/17 07:00 Resp 20 04/06/17 07:00 BP 123/79 04/06/17 07:00 Pulse Ox 99 04/06/17 07:00 - Labs Result Diagrams: 04/06/17 02:29 04/06/17 02:29 Assessment & Plan (1) CVA (cerebral vascular accident) Assessment and Plan: Medication: * Aspirin 81mg PO daily Imaging: CT head: No acute intracranial hemorrhage, or suspicious mass effect. * Acute infarction may be CT occult within first 24 hours. * If a focal deficit persists, consider followup CT or MRI for further evaluation F/u Echo, F/u carotid doppler, F/U MRI, brain, Neurochecks q4h, Neurology consult, Dr. Gomez--> help appreciated Status: Acute (2) Substance abuse Assessment and Plan: UDS: + Cocaine metabolites * counselled about substance abuse Status: Acute (3) Prophylactic measure Assessment and Plan: Scds Protonix 40mg PO daily Heparin 5,000 SC units Q8H Status: Acute <Stan Frances P - Last Filed: 04/09/17 19:37> Results - Vital Signs Recent Vital Signs: Last Vital Signs Temp 97.5 F L 04/07/17 08:34 Pulse 59 L 04/07/17 08:34 Resp 20 04/07/17 08:34 BP 140/84 04/07/17 08:34 Pulse Ox 98 04/07/17 08:34 - Labs Result Diagrams: 04/07/17 07:16 04/07/17 07:16 Attending/Attestation - Attestation I have personally seen and examined this patient.: Yes I have fully participated in the care of the patient.: Yes I have reviewed all pertinent clinical information: Yes Notes (Text): See note on the same day by me.
[2017-04-06] MEDS: Pantoprazole 40 mg Susp UD PO SCH (10:20)
--- NOTE | 2017-04-06 10:54 | RAD ---
HISTORY: cp COMPARISON: Chest x-ray performed 12/19/16 TECHNIQUE: Chest, one view. FINDINGS: Examination limited by habitus. LUNGS: No focal consolidation. Please note that chest x-ray has limited sensitivity for the detection of pulmonary masses. PLEURA: No significant pleural effusion identified. No definite pneumothorax . CARDIOVASCULAR: The cardiomediastinal silhouette appears within normal limits of size. OSSEOUS STRUCTURES: No acute osseous abnormality identified. VISUALIZED UPPER ABDOMEN: Unremarkable. OTHER FINDINGS: None. IMPRESSION: No focal consolidation, significant pleural effusion, or definite pneumothorax identified.
--- NOTE | 2017-04-06 12:52 | MRI ---
PROCEDURE: MRI BRAIN WITHOUT CONTRAST HISTORY: left side flaccid paralysis COMPARISON: None. TECHNIQUE: Multiplanar, multisequence MR images of the brain were obtained without intravenous contrast enhancement. FINDINGS: HEMORRHAGE: None DWI: No evidence of an acute or early subacute infarction. BRAIN PARENCHYMA: There are scattered subcortical and periventricular white matter abnormalities which are all under 1 cm size identified at the bilateral frontal and parietal lobes and appear to spare the corpus callosum. Brainstem and cerebellum appear uninvolved. There is no mass effect throughout. The sulci and cisterns appear normal in overall volume as well as the ventricular system. The pattern is nonspecific and could reflect many different etiologies ranging from migraine headaches to hypertension to vasculitis or even demyelination and Lyme disease. Follow-up contrast MRI is advised. The midline brain anatomy appears normal and there is no suspicious extra-axial fluid collection identified. Craniocervical junction appears intact. VENTRICLES: Unremarkable. No hydrocephalus. CRANIUM: Unremarkable. ORBITS: Grossly unremarkable. PARANASAL SINUSES/MASTOIDS: Clear VASCULAR SYSTEM: Skull base flow voids intact. OTHER FINDINGS: None. IMPRESSION: Limited abnormal white matter changes are appreciated in the bilateral frontal and parietal lobes sparing the corpus callosum. Please see differential diagnosis above. The pattern is nonspecific. Follow-up contrast brain MRI is advised. Remaining examination is unremarkable.
--- NOTE | 2017-04-06 13:29 | CP.PCM.PN ---
<Claire Guidry - Last Filed: 04/06/17 16:28> Subjective - Date & Time of Evaluation Date of Evaluation: 04/06/17 Time of Evaluation: 13:23 - Subjective Subjective: Patient seen and examined at bedside. Patient c/o frontal headache that he has had since yesterday. Patient describes this as 9/10 in severity. Patient also complaining of SOB on exertion and at rest that comes and goes along with left sided chest pain that comes and goes. Patient says he is not currently having this chest pain or SOB. Patient admits to nonproductive cough x 3days. Patient says he is still having numbness and paralysis in his left UE and LE. Patient denies numbness or paralysis in face. Denies tingling sensation. Patient also denies blurry vision, abdominal pain, N/V/D/C. When asked about previous reported stroke patient says he cant remember what his doctors said about why this happened. Objective - Vital Signs/Intake and Output Vital Signs (last 24 hours): Temp Pulse Resp BP Pulse Ox 97.7 F 70 20 123/79 99 04/06/17 07:00 04/06/17 07:00 04/06/17 07:00 04/06/17 07:00 04/06/17 07:00 Intake and Output: 04/06/17 04/06/17 06:59 18:59 Intake Total 120 Balance 120 - Medications Medications: Current Medications Aspirin (Aspirin Chewable) 81 mg PO DAILY [facility] Last Admin: 04/06/17 10:20 Dose: 81 mg Heparin Sodium (Porcine) (Heparin) 5,000 units SC Q8 [facility] Ondansetron HCl (Zofran Inj) 4 mg IVP Q6H PRN PRN Reason: Nausea/Vomiting Pantoprazole Sodium (Protonix Susp) 40 mg PO DAILY [facility] Last Admin: 04/06/17 10:20 Dose: 40 mg Pneumococcal Polyvalent Vaccine (Pneumovax 23 Vaccine) 0.5 ml IM .ONCE ONE Stop: 04/08/17 14:01 Rosuvastatin Calcium (Crestor) 5 mg PO HS [facility] - Labs Labs: PT 11.8 SECONDS (9.7-12.2) 04/06/17 02:29 INR 1.1 04/06/17 02:29 APTT 28 SECONDS (21-34) 04/06/17 02:29 - Constitutional Appears: Non-toxic, No Acute Distress - Head Exam Head Exam: NORMAL INSPECTION - Eye Exam Eye Exam: EOMI - ENT Exam ENT Exam: Mucous Membranes Moist - Respiratory Exam Respiratory Exam: Clear to Ausculation Bilateral, NORMAL BREATHING PATTERN - Cardiovascular Exam Cardiovascular Exam: REGULAR RHYTHM, +S1, +S2. absent: Bradycardia, Tachycardia - GI/Abdominal Exam GI & Abdominal Exam: Soft, Normal Bowel Sounds. absent: Distended, Tenderness - Extremities Exam Extremities Exam: absent: Pedal Edema, Tenderness - Neurological Exam Neurological Exam: Alert, Awake, CN II-XII Intact Neuro motor strength exam: Left Upper Extremity: 0 (Patient will not hit face when LUE dropped over face. Noticed muscles tense in LUE when coughing as though he wanted to cover his mouth to cough but quickly relaxed them after. Patients muscles do not flex when asked to try to move the LUE. ), Right Upper Extremity: 5, Left Lower Extremity: 0 (When performing [place], muscles were initially tense but patient relxed them, however when asked to move LLE, patient 's muscles will not tense. ), Right Lower Extremity: 5 - Psychiatric Exam Psychiatric exam: Normal Affect, Normal Mood - Skin Skin Exam: Dry, Intact, Normal Color, Warm Assessment and Plan - Assessment and Plan (Free Text) Assessment: CVA Medication: * Aspirin 81mg PO daily Imaging: CT head: No acute intracranial hemorrhage, or suspicious mass effect. * Acute infarction may be CT occult within first 24 hours. * If a focal deficit persists, consider followup CT or MRI for further evaluation MRI brain: scattered subcortical and periventricular white matter abnormalities which are all under 1 cm size identified at the bilateral frontal and parietal lobes and appear to spare the corpus callosum. Brainstem and cerebellum appear uninvolved. There is no mass effect throughout. The sulci and cisterns appear normal in overall volume as well as the ventricular system. The pattern is nonspecific and could reflect many different etiologies ranging from migraine headaches to hypertension to vasculitis or even demyelination and Lyme disease. Follow-up contrast MRI is advised. * 0.5 mg Ativan given for claustrophobia F/U MRI brain with contrast F/u Echo F/u carotid doppler Neurochecks q4h HbA1c: 5.1 TSH: 0.92 Lipid Panel: * Tri * LDL:103 * HDL:67 * Total Chol: 168 Neurology consult, Dr. Gomez--> help appreciated Psych consult (Dr. Anderson) - recs apprpeciated * likely conversion disorder as patient was witness using all extremities on [employer] monitor system Substance abuse UDS: + Cocaine metabolites * counselled about substance abuse Prophylactic measure Scds Protonix 40mg PO daily Heparin 5,000 SC units Q8H Disposition: Likely D/C tomorrow morning (04/07) given this is unlikely to be an acute stroke and more likely conversion disorder <Kye Lopez - Last Filed: 04/06/17 19:20> Objective - Vital Signs/Intake and Output Vital Signs (last 24 hours): Temp Pulse Resp BP Pulse Ox 98.1 F 73 20 130/85 98 04/06/17 15:47 04/06/17 15:47 04/06/17 15:47 04/06/17 15:47 04/06/17 15:47 Intake and Output: 04/06/17 04/07/17 18:59 06:59 Intake Total 600 Output Total 600 Balance 0 - Medications Medications: Current Medications Acetaminophen (Tylenol 325mg Tab) 650 mg PO Q6 PRN PRN Reason: Headache Last Admin: 04/06/17 16:34 Dose: 650 mg Aspirin (Aspirin Chewable) 81 mg PO DAILY [facility] Last Admin: 04/06/17 10:20 Dose: 81 mg Heparin Sodium (Porcine) (Heparin) 5,000 units SC Q8 [facility] Last Admin: 04/06/17 13:35 Dose: 5,000 units Ondansetron HCl (Zofran Inj) 4 mg IVP Q6H PRN PRN Reason: Nausea/Vomiting Pantoprazole Sodium (Protonix Susp) 40 mg PO DAILY [facility] Last Admin: 04/06/17 10:20 Dose: 40 mg Pneumococcal Polyvalent Vaccine (Pneumovax 23 Vaccine) 0.5 ml IM .ONCE ONE Stop: 04/08/17 14:01 Rosuvastatin Calcium (Crestor) 5 mg PO HS [facility] - Labs Labs: PT 11.8 SECONDS (9.7-12.2) 04/06/17 02:29 INR 1.1 04/06/17 02:29 APTT 28 SECONDS (21-34) 04/06/17 02:29 Attending/Attestation - Attestation I have personally seen and examined this patient.: Yes I have fully participated in the care of the patient.: Yes I have reviewed all pertinent clinical information, including history, physical exam and plan: Yes Notes (Text): 04/06/17 19:16 Patient was seen shortly after his MRI Brain without contrast. Patient was asleep and he was easily arousable and I asked him to sit up. He was noticed to flex the left hip, left leg, and left lower arm, bearing weight on these areas and pushing himself up into seating position. However when I attempted to perform muscle strength testing, patient kept his left arm and left leg limp. I also raised patients left arm/hand above patient's head and let go and it was noted that the patient did not let the left arm/hand fall onto his face and they fell onto his left side. I spoke with Psychiatry Dr. Anderson and Neurology Dr. Jasmin Gomez and explained my findings. If there are NO issues with MRI Brain with contrast, medicine team will discharge patient in the morning. Kye Lopez D.O.
[2017-04-06] MEDS ORDERED: Gadodiamide 287 mg/ml 20 ml IV ONE (17:08)
--- NOTE | 2017-04-06 17:50 | MRI ---
PROCEDURE: MRI BRAIN WITH AND WITHOUT CONTRAST HISTORY: Recommended by Radiology COMPARISON: MRI brain without contrast performed earlier the same day. TECHNIQUE: Multiplanar, multisequence MR images of the brain were obtained with and without intravenous contrast enhancement. 18 mL Omniscan was injected intravenously. FINDINGS: HEMORRHAGE: None DWI: No evidence of an acute or early subacute infarction. BRAIN PARENCHYMA: There is no corresponding enhancement in the scattered T2/FLAIR hyperintense foci demonstrated on noncontrast examination. There is no mass, mass effect or abnormal extra-axial fluid collection. The midline sagittal structures are normal. ENHANCEMENT: No abnormal intracranial enhancement. VENTRICLES: There is mild global parenchymal volume loss and proportionate enlargement of the ventricles and cortical sulci, advanced for the patient's age. CRANIUM: There is normal bone marrow signal pattern. ORBITS: Grossly unremarkable. PARANASAL SINUSES/MASTOIDS: Mild mucosal thickening in the paranasal sinuses. Trace mastoid effusions. VASCULAR SYSTEM: There are normal signal voids in the larger intracranial arteries. OTHER FINDINGS: None . IMPRESSION: 1. No abnormal enhancement corresponding to the subcortical supratentorial white matter lesions demonstrated on noncontrast examination. The differential consideration of these white matter lesions include migraine headache effect, gliosis, vasculitis, Lyme disease, an demyelinating disease including multiple sclerosis. Clinical correlation and follow-up is advised. 2. Mild age advanced global parenchymal volume loss.
--- NOTE | 2017-04-07 00:39 | CON ---
REASON FOR CONSULTATION: CVA and left-sided numbness. HISTORY OF PRESENT ILLNESS: The patient is a 31-year-old male who has been asked for evaluation of left-sided numbness. The patient presented to the emergency room with chest pain. The patient apparently went to the bar after work and then after that he just started experiencing chest pain with no radiation of pain. While in the emergency room, the patient apparently had experienced left-sided numbness without speech deficit and facial asymmetry. Later on, he started experiencing weakness on the left side. The patient was not moving his left side. The patient was offered TPA in the emergency room; however, he refused TPA. REVIEW OF SYSTEMS: The patient denies any headache, positive for chest pain. Denies any constipation, diarrhea, dysuria, cough, or sputum production, but does complain of left-sided weakness. 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 PAST SURGICAL HISTORY: Denies. MEDICATIONS AT HOME: None. ALLERGIES: NO KNOWN DRUG ALLERGIES. SOCIAL HISTORY: He does smoke cigarettes, does drink alcohol. He does do cocaine and marijuana. FAMILY HISTORY: Noncontributory to the case. PHYSICAL EXAMINATION: GENERAL: The patient is a young male lying on the bed, in no acute distress. VITAL SIGNS: Blood pressure is 123/79, heart rate is 70 per minute, breathing at the rate of 16 per minute, temperature 97.7 degrees Fahrenheit. HEENT: Head is normocephalic, atraumatic. NECK: Supple. There are no carotid bruits. LUNGS: Clear. CARDIOPULMONARY: S1 and S2 audible. No murmurs. ABDOMEN: Soft and nontender. Bowel sounds are present. NEUROLOGIC: Mental Status: The patient is awake, alert, oriented to time, place, and person. Speech is fluent. Naming and repetition are normal. Memory and cognition are intact. Cranial Nerve Examination: Pupils are 3 mm bilaterally, reactive to light. Visual ash are full. Extraocular movements are intact. There is no facial asymmetry. Palate is upgoing bilaterally and tongue is midline. Motor Examination: Tone is normal. There is [id number] weakness noted in the left upper extremity. Power in the right side is 5/5. Power in the right lower extremity 5/5. Power in the left lower extremity 0/5. The patient does have positive Allen sign. Reflexes 1+ and symmetrical. Plantars are downgoing bilaterally. Cerebellar examination: [id number] shows no dysmetria. LABORATORY DATA: Labs reviewed shows WBC of 13.1, hemoglobin of 15.5, hematocrit of 43.5, and platelets of 295. INR is 1.1. Sodium is 140, potassium 3.6, chloride 98, carbon dioxide content 24, BUN of 11, creatinine of 0.9 and glucose of 105. His urine toxicology is positive for cocaine. He had a CT scan of the head done which is negative for any acute pathology. He had MRI of the brain, which was limited. Abnormal white matter changes are appreciated in the bilateral frontal and parietal lobes, specifically in the corpus callosum. The differential includes migraine headaches, hypertension, demyelination, Lyme disease. Follow-up MRI with contrast is advised. IMPRESSION: Left-sided weakness with odgp-[id number] weakness noted on the left side. RECOMMENDATIONS: 1. The patient to have carotid Doppler and an echocardiogram. 2. The patient also to have MRI of the brain with contrast suggested by the radiology. 3. The patient to have aggressive physical therapy. 4. If the patient's symptoms does not improve, consider getting psychiatric input as well. This is because it appears to be secondary to possible conversion reaction. 5. Please continue supportive care and other treatment. Thank you for the opportunity to participate in the care of this patient. Jacqueline Gomez MD
[2017-04-07 05:48] VITALS: TEMP 97.5
[2017-04-07 07:22] LABS: BASO % 0.7 % (0.0-2.0); EOS # 0.2 K/uL (0.0-0.7); EOS % 3.5 % (0.0-4.0); HEMATOCRIT 45.6 % (35.0-51.0); LYMPH # 2.9 K/uL (1.0-4.3); LYMPH % 47.6 % (20.0-40.0); MEAN CELL VOLUME 92.6 fL (80.0-94.0); MEAN CORPUSCULAR HEMOGLOBIN 31.9 pg (27.0-31.0); MEAN CORPUSCULAR HGB CONC 34.5 g/dL (33.0-37.0); MEAN PLATELET VOLUME 8.3 fL (7.2-11.7); MONO # 0.5 K/uL (0.0-0.8); MONO % 7.6 % (0.0-10.0); RED CELL DISTRIBUTION WIDTH 12.7 % (11.5-14.5)
[2017-04-07 08:15] LABS: CHLORIDE 102 mmol/L (98-107); POTASSIUM 3.9 mmol/L (3.6-5.2); SODIUM 139 mmol/L (132-148)
[2017-04-07 08:17] LABS: BILIRUBIN,TOTAL 0.9 mg/dL (0.2-1.3); GFR AFRICAN-AMERICAN > 60
[2017-04-07 08:18] LABS: ALB/GLOB RATIO 1.4 (1.0-2.1); ALKALINE PHOSPHATASE 103 U/L (38-126); ALT/SGPT 78 U/L (21-72); AST/SGOT 49 U/L (17-59); BLOOD UREA NITROGEN 15 mg/dL (9-20); CARBON DIOXIDE 26 mmol/L (22-30); TOTAL PROTEIN 7.3 g/dL (6.3-8.3)
[2017-04-07 08:19] LABS: CALCIUM 9.1 mg/dl (8.6-10.4); GLUCOSE,RANDOM 88 mg/dL (75-110)
[2017-04-07 08:35] VITALS: BP 140/84; PULSE 59; O2SAT 98
[2017-04-07] MEDS: Pantoprazole 40 mg Susp UD PO SCH (09:18)
--- NOTE | 2017-04-07 10:46 | VASCLAB ---
PROCEDURE: HISTORY: CVA COMPARISON: None available. TECHNIQUE: Grayscale and duplex Doppler evaluation of the cervical carotid and vertebral arteries were performed. The common carotid, carotid bifurcations and cervical Internal Carotid Artery (ICA) and proximal External Carotid Artery (ECA) were evaluated. The vertebral arteries were evaluated for gross patency and flow direction. Report prepared by TYLER Estrada FINDINGS: RIGHT CAROTID ARTERIES: 1. Common Carotid Artery: No significant focal plaque formation of the right common carotid artery. Maximum Peak Systolic velocity: 75 cm/sec: End-diastolic velocity 19 cm/sec. 2. Carotid Bifurcation: plaque formation. Maximum Peak Systolic velocity: 74 cm/sec: End-diastolic velocity 15 cm/sec. 3. Internal Carotid Artery: Plaque description: 3.1. Proximal Segment: Peak systolic velocity 57 cm/sec: End-diastolic velocity 25 cm/sec - % stenosis 0-15% 3.2. Middle Segment: Peak systolic velocity 70 cm/sec: End-diastolic velocity 30 cm/sec - % stenosis 0-15% 3.3. Distal Segment: Peak systolic velocity 52 cm/sec: End-diastolic velocity 27 cm/sec - % stenosis 0-15% 4. External Carotid Artery: No significant focal plaque formation. Peak systolic velocity 85 cm/sec 5. ICA/CCA Ratio: 1.0 LEFT CAROTID ARTERIES: 1. Common Carotid Artery: No significant focal plaque formation of the left common carotid artery. Maximum Peak Systolic velocity: 87 cm/sec: End-diastolic velocity 26 cm/sec. 2. Carotid Bifurcation: plaque formation. Maximum Peak Systolic velocity: 76 cm/sec: End-diastolic velocity 18 cm/sec. 3. Internal Carotid Artery: Plaque description: 3.1. Proximal Segment: Peak systolic velocity 72 cm/sec: End-diastolic velocity 25 cm/sec - % stenosis 0-15% 3.2. Middle Segment: Peak systolic velocity 71 cm/sec: End-diastolic velocity 26 cm/sec - % stenosis 0-15% 3.3. Distal Segment: Peak systolic velocity 59 cm/sec: End-diastolic velocity 20 cm/sec - % stenosis 0-15% 4. External Carotid Artery: No significant focal plaque formation. Peak systolic velocity cm/sec 5. ICA/CCA Ratio: 0.9 VERTEBRAL ARTERIES: 1. Right Vertebral Artery: The right vertebral artery flow direction is antegrade. 2. Left Vertebral Artery: The left vertebral artery flow direction is antegrade. OTHER FINDINGS: 1. Right Brachial Blood pressure: 110 mmHg. 2. Left Brachial Blood pressure: 100 mmHg. IMPRESSION: RIGHT: Duplex scan does not suggest hemodynamically significant stenosis of the right extracranial carotid arteries. LEFT: Duplex scan does not suggest hemodynamically significant stenosis of the left extracranial carotid arteries.
--- NOTE | 2017-04-07 12:33 | CP.PCM.PN ---
Subjective - Date & Time of Evaluation Date of Evaluation: 04/07/17 Time of Evaluation: 12:15 - Subjective Subjective: Hospitalist Progress Note Patient was seen and examined at 12:15 PM 04/07/17 CT Head did not show any acute pathology MRI Brain without contrast showed limited white mater changes MRI Brain with contrast showed no abnormal enhancement corresponding to subcortical supratentorial white matter lesions demonstrated on noncrast MRI Carotid U/S did not show any significant stensosis Chest X Ray did not show any acute disease Upon ROS patient is still complaining of the inability to feel and move the left side of his body. I explained to patient that the video monitor was placed for this purpose and showed that he was able to move and use the left arm and left leg (I spoke with the [employer] who have documented this and I also spoke with the KEESHA Flores with whom patient did get up and walk with a walker after my exam today). Patient did not respond to this and just looked at me. I explained to him that he need follow up with our clinic and through the clinic needed to follow up with Neurology and Psychiatry. Please also note that patient would not leave after he was discharged. Security was called and patient then patient actually walked out of the hospital. Exam: General: AAOx3, NAD HEENT: NCA, EOMI, PERRLA, NO lymphadenopathy, NO thyromegaly, NO pharyngeal erythema/exudate Cardio: NS1 and NS2, NO M/R/G Respiratory: CTA B/L, NO R/R/W GI: BSx4, Soft, NO guarding/rebound tenderness, NO HSM Ext: Bilateral Pulses UE and LE are strong and equal, Capillary Refill is 2 seconds, NO edema Neuro: CN II through XII are grossly intact I spoke with Neurologist Dr. Jasmin Gomez and patient is cleared from his perspective after the repeat MRI Brain with contrast (results above). I spoke with Psychiatrist Dr. Anderson and patient is cleared from his perspective. I explained to patient's Sister Jewels [phone] the findings on my exam yesterday and the findings on Video Monitor and Customer Care Professional Pat left a message on her phone explaining that the patient was going to be discharged. The following instructions were explained to patient and a copy provided to him upon discharge: 1). Schedule follow up with [facility] located at [facility] [address] in [facility] in the next 7 days. Call [phone] for an appointment. 2). Through the [facility] you will need the following: Follow up with Neurology for your findings on MRI Brain Follow up with Psychiatry for your history of substance abuse Follow up the results of the ultrasound of your heart 3). Please follow up with Narcotics Anonymous at [facility] located on [address] [facility] on Wednesdays at 8 PM 4). Please follow up with Alcoholics Anonymous at [facility] located on [address] [facility] on Sundays at 2 PM and Mondays at 8 PM. 5). You were provided with a walker as recommended by your physical therapist. 6). Please take care and be well. Kye Lopez D.O. Objective - Vital Signs/Intake and Output Vital Signs (last 24 hours): Temp Pulse Resp BP Pulse Ox 97.5 F L 59 L 20 140/84 98 04/07/17 08:34 04/07/17 08:34 04/07/17 08:34 04/07/17 08:34 04/07/17 08:34 Intake and Output: 04/07/17 04/07/17 06:59 18:59 Output Total 1050 Balance -1050 - Medications Medications: Current Medications Acetaminophen (Tylenol 325mg Tab) 650 mg PO Q6 PRN PRN Reason: Headache Last Admin: 04/07/17 09:18 Dose: 650 mg Aspirin (Aspirin Chewable) 81 mg PO DAILY [facility] Last Admin: 04/07/17 09:18 Dose: 81 mg Heparin Sodium (Porcine) (Heparin) 5,000 units SC Q8 [facility] Last Admin: 04/07/17 06:47 Dose: 5,000 units Ondansetron HCl (Zofran Inj) 4 mg IVP Q6H PRN PRN Reason: Nausea/Vomiting Pantoprazole Sodium (Protonix Susp) 40 mg PO DAILY [facility] Last Admin: 04/07/17 09:18 Dose: 40 mg Pneumococcal Polyvalent Vaccine (Pneumovax 23 Vaccine) 0.5 ml IM .ONCE ONE Stop: 04/08/17 14:01 Rosuvastatin Calcium (Crestor) 5 mg PO HS [facility] Last Admin: 04/06/17 21:33 Dose: 5 mg - Labs Labs: 04/07/17 07:16 04/07/17 07:16 PT 11.8 SECONDS (9.7-12.2) 04/06/17 02:29 INR 1.1 04/06/17 02:29 APTT 28 SECONDS (21-34) 04/06/17 02:29
--- NOTE | 2017-04-07 13:40 | PCM.PSYCH ---
Initial Psychiatric Evaluation - Initial Psychiatric Evaluation Type of Admission: Voluntary Legal Status: Capacity Chief Complaint (in patient's own words): I was having chest pain History of Present Illness and Precipitating Events: Pt is a 31 years old HM, with past history of alcohol dependence came to the ED with chest pain. Pt was just discharged from detox a couple of months ago. He reports that he relapsed on drinking soon after discharge from the hospital and started drinking 7-10 12 oz beers. Yesterday he consumed almost 5 cans when he developed chest pain and came to the hospital for evaluation. Patient reports chest pain and denies any feelings of hopelessness and denies any suicidal ideation or homicidal ideation. He reports anxiety and headaches and denies any other withdrawal symptoms. He denies any psychotic or manic symptoms. Current Medications: Active Medications Generic Name Dose Route Start Last Admin Trade Name Freq PRN Reason Stop Dose Admin Acetaminophen 650 mg 04/06/17 16:26 04/07/17 09:18 Tylenol 325mg Tab PO 650 mg Q6 PRN Administration Headache Aspirin 81 mg 04/06/17 10:00 04/07/17 09:18 Aspirin Chewable PO 81 mg DAILY [facility] Administration Heparin Sodium (Porcine) 5,000 units 04/06/17 14:00 04/07/17 13:24 Heparin SC 5,000 units Q8 [facility] Administration Ondansetron HCl 4 mg 04/06/17 05:42 Zofran Inj IVP Q6H PRN Nausea/Vomiting Pantoprazole Sodium 40 mg 04/06/17 10:00 04/07/17 09:18 Protonix Susp PO 40 mg DAILY [facility] Administration Pneumococcal Polyvalent Vaccine 0.5 ml 04/08/17 14:00 Pneumovax 23 Vaccine IM 04/08/17 14:01 .ONCE ONE Rosuvastatin Calcium 5 mg 04/06/17 22:00 04/06/17 21:33 Crestor PO 5 mg HS [facility] Administration Past Psychiatric History - Past Psychiatric History Previous Treatment History: Inpatient Pertinent Medical Hx (Current Medical&Sleep Prob, Allergies): Allergies Allergy/AdvReac Type Severity Reaction Status Date / Time No Known Allergies Allergy Verified 04/06/17 01:50 No Known Home Med 12/19/16 Review of Systems - Review of Systems All systems: reviewed and no additional remarkable complaints except Mental Status Examination - Personal Presentation Personal Presentation: Looks stated age - Affect Affect: Constricted - Motor Activity Motor Activity: Calm - Reliability in Providing Information Reliability in Providing Information: Good - Speech Speech: Organized - Mood Mood: Anxious - Formal Thought Process Formal Thought Process: No Impairment - Obsessions/Compulsions Obsessions: No Compulsions: No - Cognitive Functions Orientation: Person, Place, Situation, Time Sensorium: Alert Attention/Concentration: Attentive Abstract Thinking: [place]le Estimate of Intelligence: Below average Judgement: Imparied, as evidence by: Poor judgement, Intact, as evidence by: Insight regarding need for hospitalization - Risk Risk: Diminished functioning DSM 5 DX - DSM 5 DSM 5 Diagnosis: Alcohol use disorder severe Alcohol withdrawal - Recommended/Plan of Treatment Treatment Recommendations and Plan of Treatment: Patient psychiatrically stable to be discharged - Smoking Cessation Smoking Cessation Initiated: No
--- NOTE | 2017-04-07 13:54 | CP.PCM.DIS ---
<ChaoClaire - Last Filed: 04/07/17 13:51> Provider - Provider Date of Admission: 04/06/17 03:48 Attending physician: Stan Frances MD Consults: Dr. Patricia Anderson Time Spent in preparation of Discharge (in minutes): 35 Diagnosis - Discharge Diagnosis (1) Conversion disorder Status: Acute Comment: Please see summary for more details. Hospital Course - Lab Results Lab Results: Most Recent Lab Values WBC 6.0 K/uL (4.8-10.8) D 04/07/17 07:16 RBC 4.93 Mil/uL (4.40-5.90) 04/07/17 07:16 Hgb 15.7 g/dL (12.0-18.0) 04/07/17 07:16 Hct 45.6 % (35.0-51.0) 04/07/17 07:16 MCV 92.6 fL (80.0-94.0) 04/07/17 07:16 MCH 31.9 pg (27.0-31.0) H 04/07/17 07:16 MCHC 34.5 g/dL (33.0-37.0) 04/07/17 07:16 RDW 12.7 % (11.5-14.5) 04/07/17 07:16 Plt Count 267 K/uL (130-400) 04/07/17 07:16 MPV 8.3 fL (7.2-11.7) 04/07/17 07:16 Neut % (Auto) 40.6 % (50.0-75.0) L 04/07/17 07:16 Lymph % (Auto) 47.6 % (20.0-40.0) H 04/07/17 07:16 Davidson % (Auto) 7.6 % (0.0-10.0) 04/07/17 07:16 Eos % (Auto) 3.5 % (0.0-4.0) 04/07/17 07:16 Baso % (Auto) 0.7 % (0.0-2.0) 04/07/17 07:16 Neut # 2.4 K/uL (1.8-7.0) 04/07/17 07:16 Lymph # 2.9 K/uL (1.0-4.3) 04/07/17 07:16 Davidson # 0.5 K/uL (0.0-0.8) 04/07/17 07:16 Eos # 0.2 K/uL (0.0-0.7) 04/07/17 07:16 Baso # 0.0 K/uL (0.0-0.2) 04/07/17 07:16 PT 11.8 SECONDS (9.7-12.2) 04/06/17 02:29 INR 1.1 04/06/17 02:29 APTT 28 SECONDS (21-34) 04/06/17 02:29 Sodium 139 mmol/L (132-148) 04/07/17 07:16 Potassium 3.9 mmol/L (3.6-5.2) 04/07/17 07:16 Chloride 102 mmol/L (98-107) 04/07/17 07:16 Carbon Dioxide 26 mmol/L (22-30) 04/07/17 07:16 Anion Gap 15 (10-20) 04/07/17 07:16 BUN 15 mg/dL (9-20) 04/07/17 07:16 Creatinine 0.9 MG/DL (0.8-1.5) 04/07/17 07:16 Est GFR ( Amer) > 60 04/07/17 07:16 Est GFR (Non-Af Amer) > 60 04/07/17 07:16 POC Glucose (mg/dL) 77 mg/dL (65-110) 04/07/17 06:24 Random Glucose 88 mg/dL (75-110) 04/07/17 07:16 Hemoglobin A1c 5.1 % (4.2-6.5) 04/06/17 02:29 Calcium 9.1 mg/dl (8.6-10.4) 04/07/17 07:16 Total Bilirubin 0.9 mg/dL (0.2-1.3) 04/07/17 07:16 AST 49 U/L (17-59) 04/07/17 07:16 ALT 78 U/L (21-72) H 04/07/17 07:16 Alkaline Phosphatase 103 U/L (38-126) 04/07/17 07:16 Troponin I < 0.0120 ng/mL (0.00-0.120) 04/06/17 19:51 Total Protein 7.3 g/dL (6.3-8.3) 04/07/17 07:16 Albumin 4.2 g/dL (3.5-5.0) 04/07/17 07:16 Globulin 3.1 gm/dL (2.2-3.9) 04/07/17 07:16 Albumin/Globulin Ratio 1.4 (1.0-2.1) 04/07/17 07:16 Triglycerides 65 mg/dL (0-149) 04/06/17 02:29 Cholesterol 168 mg/dL (0-199) 04/06/17 02:29 LDL Cholesterol Direct 103 mg/dL (0-129) 04/06/17 02:29 HDL Cholesterol 67 mg/dL (30-70) 04/06/17 02:29 TSH 3rd Generation 0.92 mIU/L (0.46-4.68) 04/06/17 02:29 Urine Opiates Screen Negative (NEGATIVE) 04/06/17 03:43 Urine Methadone Screen Negative (NEGATIVE) 04/06/17 03:43 Ur Barbiturates Screen Negative (NEGATIVE) 04/06/17 03:43 Ur Phencyclidine Scrn Negative (NEGATIVE) 04/06/17 03:43 Ur Amphetamines Screen Negative (NEGATIVE) 04/06/17 03:43 U Benzodiazepines Scrn Negative (NEGATIVE) 04/06/17 03:43 U Oth Cocaine Metabols Positive (NEGATIVE) 04/06/17 03:43 U Cannabinoids Screen Negative (NEGATIVE) 04/06/17 03:43 Alcohol, Quantitative 13 mg/dl (0-10) H 04/06/17 02:29 Blood Type O POSITIVE 04/06/17 02:40 Antibody Screen Negative 04/06/17 02:40 - Hospital Course Hospital Course: Upon admission: Patient is a 31 year old male with past medical history of stroke (17 yrs old) who presents to the ED with chest pain that started around 12pm yesterday at work. Patient reports that his chest pain increased in intensity after he went to the bar after work (having 2-3 coronas). Patient describes his chest pain as a 7/10 chest pressure without radiation and not alleviated or worsened by anything. Patient reports that he experienced dizziness, tongue numbness, palpitations, diaphoresis, frontal headache, nausea, vomiting (yellow colored), but denies abdominal pain, diarrhea, constipation, urinary symptoms, back pain and flank pain. While in the ED, code stroke was called with patient experiencing left-side numbness without speech deficit and facial asymmetry. Patient later reported that he experienced left-sided numbness, tingling during his ride to the ED on the ambulance. On request patient was not able to raise left arm or leg, left hand raised over the face would not fall on the face suggesting him having the control of the left arm. Patient refused TPA. Hospital Course: Patient was admitted for possible CVA. Patient was started on Aspirin 81 mg PO QD. Urine drug screen was positive for cocaine metabolites. CT head showed no acute intracranial hemorrhage, or suspicious mass effect. MRI brain showed limited white matter changes. Neurology was consulted (Dr. Gomez) and suggested MRI with contrast which showed no abnormal enhancement corresponding to subcortical supratentorial white matter lesions demonstrated on noncrast MRI. Dr. Gomez also suggested carotid doppler and echocardiogram. Carotid doppler showed no significant stenosis. Echocardiogram results are pending and the patient will need follow up as described in the discharge instructions. The [employer] system was then utilized to monitor for movement of the left sided extremities due to exam findings that suggested there may not be paralysis. Patient was found to be moving all extremities spontaneously. Psychiatry was consulted (Dr. Anderson) and saw the patient. After thorough history and exam the patient was cleared for discharge by psychiatry. Patient was seen by PT and walked with a walker with her. Upon Discharge: Patient stable for discharge per Dr. Lopez, who explained this to the patient as well as his sister, Jewels. The following instructions were explained to patient and a copy provided to him upon discharge: 1). Schedule follow up with [facility] located at [facility] [address] [facility] in [facility] in the next 7 days. Call [phone] for an appointment. 2). Through the [facility] you will need the following: Follow up with Neurology for your findings on MRI Brain Follow up with Psychiatry for your history of substance abuse Follow up the results of the ultrasound of your heart 3). Please follow up with Narcotics Anonymous at [facility] located on [address] [facility] on Wednesdays at 8 PM 4). Please follow up with Alcoholics Anonymous at [facility] located on [address] in [place] on Sundays at 2 PM and Mondays at 8 PM. 5). You were provided with a walker as recommended by your physical therapist. 6). Please take care and be well. Please note that this is a summary of events. For more detail, please see complete medical record. Discharge Exam - Head Exam Head Exam: NORMAL INSPECTION - Eye Exam Eye Exam: EOMI - ENT Exam ENT Exam: Mucous Membranes Moist - Respiratory Exam Respiratory Exam: Clear to PA & Lateral, NORMAL BREATHING PATTERN, UNREMARKABLE - Cardiovascular Exam Cardiovascular Exam: REGULAR RHYTHM, +S1, +S2. absent: Bradycardia, Tachycardia - GI/Abdominal Exam GI & Abdominal Exam: Normal Bowel Sounds, Soft, Unremarkable. absent: Tenderness - Extremities Exam Extremities exam: normal inspection - Neurological Exam Neurological exam: Alert, Oriented x3 - Psychiatric Exam Additional comments: Patient still not moving left side of body during exam. Patient seen moving these extremities on [employer] system. - Skin Skin Exam: Dry, Intact, Warm Discharge Plan - Follow Up Plan Condition: GOOD Disposition: HOME/ ROUTINE Instructions: Chest Pain (DC), Heart Healthy Diet (DC), Abuse of Alcohol (DC), Alcohol Withdrawal (DC) Additional Instructions: The following instructions were explained to patient and a copy provided to him upon discharge: 1). Schedule follow up with [facility] located at [facility] [address] [facility] in [facility] in the next 7 days. Call [phone] for an appointment. 2). Through the [facility] you will need the following: Follow up with Neurology for your findings on MRI Brain Follow up with Psychiatry for your history of substance abuse Follow up the results of the ultrasound of your heart 3). Please follow up with Narcotics Anonymous at [facility] located on [address] [facility] on Wednesdays at 8 PM 4). Please follow up with Alcoholics Anonymous at [facility] located on [address] [facility] on Sundays at 2 PM and Mondays at 8 PM. 5). You were provided with a walker as recommended by your physical therapist. 6). Please take care and be well. Referrals: Clinic,Med Surg [Non-Staff] - Sienna Randle MD [Staff Provider] - <Kye Lopez - Last Filed: 04/07/17 17:43> Provider - Provider Date of Admission: 04/06/17 03:48 Attending physician: Stan Frances MD Hospital Course - Lab Results Lab Results: Most Recent Lab Values WBC 6.0 K/uL (4.8-10.8) D 04/07/17 07:16 RBC 4.93 Mil/uL (4.40-5.90) 04/07/17 07:16 Hgb 15.7 g/dL (12.0-18.0) 04/07/17 07:16 Hct 45.6 % (35.0-51.0) 04/07/17 07:16 MCV 92.6 fL (80.0-94.0) 04/07/17 07:16 MCH 31.9 pg (27.0-31.0) H 04/07/17 07:16 MCHC 34.5 g/dL (33.0-37.0) 04/07/17 07:16 RDW 12.7 % (11.5-14.5) 04/07/17 07:16 Plt Count 267 K/uL (130-400) 04/07/17 07:16 MPV 8.3 fL (7.2-11.7) 04/07/17 07:16 Neut % (Auto) 40.6 % (50.0-75.0) L 04/07/17 07:16 Lymph % (Auto) 47.6 % (20.0-40.0) H 04/07/17 07:16 Davidson % (Auto) 7.6 % (0.0-10.0) 04/07/17 07:16 Eos % (Auto) 3.5 % (0.0-4.0) 04/07/17 07:16 Baso % (Auto) 0.7 % (0.0-2.0) 04/07/17 07:16 Neut # 2.4 K/uL (1.8-7.0) 04/07/17 07:16 Lymph # 2.9 K/uL (1.0-4.3) 04/07/17 07:16 Davidson # 0.5 K/uL (0.0-0.8) 04/07/17 07:16 Eos # 0.2 K/uL (0.0-0.7) 04/07/17 07:16 Baso # 0.0 K/uL (0.0-0.2) 04/07/17 07:16 PT 11.8 SECONDS (9.7-12.2) 04/06/17 02:29 INR 1.1 04/06/17 02:29 APTT 28 SECONDS (21-34) 04/06/17 02:29 Sodium 139 mmol/L (132-148) 04/07/17 07:16 Potassium 3.9 mmol/L (3.6-5.2) 04/07/17 07:16 Chloride 102 mmol/L (98-107) 04/07/17 07:16 Carbon Dioxide 26 mmol/L (22-30) 04/07/17 07:16 Anion Gap 15 (10-20) 04/07/17 07:16 BUN 15 mg/dL (9-20) 04/07/17 07:16 Creatinine 0.9 MG/DL (0.8-1.5) 04/07/17 07:16 Est GFR ( Amer) > 60 04/07/17 07:16 Est GFR (Non-Af Amer) > 60 04/07/17 07:16 POC Glucose (mg/dL) 77 mg/dL (65-110) 04/07/17 06:24 Random Glucose 88 mg/dL (75-110) 04/07/17 07:16 Hemoglobin A1c 5.1 % (4.2-6.5) 04/06/17 02:29 Calcium 9.1 mg/dl (8.6-10.4) 04/07/17 07:16 Total Bilirubin 0.9 mg/dL (0.2-1.3) 04/07/17 07:16 AST 49 U/L (17-59) 04/07/17 07:16 ALT 78 U/L (21-72) H 04/07/17 07:16 Alkaline Phosphatase 103 U/L (38-126) 04/07/17 07:16 Troponin I < 0.0120 ng/mL (0.00-0.120) 04/06/17 19:51 Total Protein 7.3 g/dL (6.3-8.3) 04/07/17 07:16 Albumin 4.2 g/dL (3.5-5.0) 04/07/17 07:16 Globulin 3.1 gm/dL (2.2-3.9) 04/07/17 07:16 Albumin/Globulin Ratio 1.4 (1.0-2.1) 04/07/17 07:16 Triglycerides 65 mg/dL (0-149) 04/06/17 02:29 Cholesterol 168 mg/dL (0-199) 04/06/17 02:29 LDL Cholesterol Direct 103 mg/dL (0-129) 04/06/17 02:29 HDL Cholesterol 67 mg/dL (30-70) 04/06/17 02:29 TSH 3rd Generation 0.92 mIU/L (0.46-4.68) 04/06/17 02:29 Urine Opiates Screen Negative (NEGATIVE) 04/06/17 03:43 Urine Methadone Screen Negative (NEGATIVE) 04/06/17 03:43 Ur Barbiturates Screen Negative (NEGATIVE) 04/06/17 03:43 Ur Phencyclidine Scrn Negative (NEGATIVE) 04/06/17 03:43 Ur Amphetamines Screen Negative (NEGATIVE) 04/06/17 03:43 U Benzodiazepines Scrn Negative (NEGATIVE) 04/06/17 03:43 U Oth Cocaine Metabols Positive (NEGATIVE) 04/06/17 03:43 U Cannabinoids Screen Negative (NEGATIVE) 04/06/17 03:43 Alcohol, Quantitative 13 mg/dl (0-10) H 04/06/17 02:29 Blood Type O POSITIVE 04/06/17 02:40 Antibody Screen Negative 04/06/17 02:40 Attending/Attestation - Attestation I have personally seen and examined this patient.: Yes I have fully participated in the care of the patient.: Yes I have reviewed all pertinent clinical information, including history, physical exam and plan: Yes
--- NOTE | 2017-04-07 17:58 | CARD ---
APPROVED REPORT EKG Measurement Heart [id number] NC 154P61 [id number] <Conclusion> Normal sinus rhythm Incomplete right bundle branch block Left anterior fascicular block Nonspecific T wave abnormality Prolonged QT Abnormal ECG
--- NOTE | 2017-04-07 18:49 | CARD ---
APPROVED REPORT EKG Measurement Heart [id number] NC 174P29 [id number] <Conclusion> Sinus bradycardia Left axis deviation Nonspecific intraventricular block Nonspecific T wave abnormality Abnormal ECG
[2017-04-08] MEDS ORDERED: Pneumococcal 23-Valent Vaccine IM ONE (14:00)
--- NOTE | 2017-04-10 11:14 | CARD ---
APPROVED REPORT EXAM: Two-dimensional and M-mode echocardiogram with Doppler and color Doppler. Other Information Quality : GoodRhythm : NSR INDICATION CVA/TIA Alcohol Abuse 2D DIMENSIONS IVSd1.2 (0.7-1.1cm)LVDd4.6 (3.9-5.9cm) PWd1.0 (0.7-1.1cm)LVDs3.0 (2.5-4.0cm) FS (%) 35.4 %LVEF (%)64.8 (>50%) M-Mode DIMENSIONS Left Atrium (MM)4.30 (2.5-4.0cm)Aortic Root3.91 (2.2-3.7cm) Aortic Cusp Exc.2.73 (1.5-2.0cm) Mitral Valve MV E Kojaslnw16.6cm/sMV A Grukbvsf39.1cm/sE/A ratio1.7 TDI E/Lateral E'0.0E/Medial E'0.0 Tricuspid Valve TR Peak [id number]/sTR Peak [id number] <Conclusion> Left ventricle: thickness: normal; size: normal; overall ejection fraction: 65%: diastolic filling pressures: normal Mitral valve: annulus: normal: leaflets: normal: excursion: normal; no significant trans-mitral gradient: no significant incompetence: left atrium: normal Aortic valve: leaflets: normal: excursion: normal; no significant trans-aortic gradient: No significant incompetence: aortic root: normal Right sided Structures: Pulmonary valve: normal; no significant incompetence; Tricuspid valve: normal; no significant incompetence: Intra-cardiac hemodynamics: pulmonary systolic pressures: normal; central venous pressures: normal No pericardial effusion
== END 2017-04-07 16:25 | disposition home or self-care (01) | DRG 880 ==
LOC: C.ER 01:36 → C.6T 03:48
PROVIDERS: ADMIT Internal Medicine; ATTEND Internal Medicine
DX: F44.9 Dissociative and conversion disorder, unspecified (principal); F14.10 Cocaine abuse, uncomplicated; F17.210 Nicotine dependence, cigarettes, uncomplicated; R07.89 Other chest pain; F10.10 Alcohol abuse, uncomplicated; F12.10 Cannabis abuse, uncomplicated; Z86.73 Personal history of transient ischemic attack (TIA), and cerebral infarction without residual deficits

== ENCOUNTER 2017-09-04 19:54 | Emergency (ER) | payer MEDICAID ==
[2017-09-04 19:54] VITALS: BMI 26.6
[2017-09-04 20:11] VITALS: BP 158/79; PULSE 93; RESP 20; TEMP 99.7; O2SAT 97
--- NOTE | 2017-09-04 20:19 | C.PDOC ---
History Of Present Illness 32 year old male presents to the emergency department complaining of body aches , sore throat, and dry cough since yesterday. Denies any vomiting, shortness of breath, diarrhea, or chest pain. Patient has had no recent travel or sick contact. PMD: No Provider Time Seen by Provider: 09/04/17 20:05 Chief Complaint (Nursing): Flu-like Symptoms History Per: Patient History/Exam Limitations: no limitations Onset/Duration Of Symptoms: Days (x2) Current Symptoms Are (Timing): Still Present Associated Symptoms: Sore Throat, Cough. denies: Sputum Past Medical History Reviewed: Historical Data, Nursing Documentation, Vital Signs Vital Signs: Last Vital Signs Temp 99.7 F H 09/04/17 19:58 Pulse 93 H 09/04/17 19:58 Resp 20 09/04/17 19:58 BP 158/79 H 09/04/17 19:58 Pulse Ox 97 09/04/17 20:23 - Medical History PMH: Depression, HTN Denies: Diabetes, Hepatitis, HIV, Chronic Kidney Disease, Seizures, Sexually Transmitted Disease Surgical History: No Surg Hx - [facility] Procedures DETOXIFICATION SERVICES FOR SUBSTANCE ABUSE TREATMENT (01/30/17) INDIV PSYCHOTHERAPY FOR SUBSTANCE ABUSE TREATMENT, SUPPORT (01/30/17) INDIV PSYCHOTHERAPY FOR SUBSTANCE ABUSE, COGNITIV BEHAVIORAL (01/30/17) INDIV PSYCHOTHERAPY FOR SUBSTANCE ABUSE, PSYCHOEDUCATION (01/30/17) MEDICATION MANAGEMENT (12/19/16) Family History: States: Unknown Family Hx - Social History Hx Tobacco Use: Yes (<10 cigarettes daily) Hx Alcohol Use: Yes Hx Substance Use: Yes - Immunization History Hx Tetanus Toxoid Vaccination: Yes Hx Influenza Vaccination: Yes Hx Pneumococcal Vaccination: No Review Of Systems Except As Marked, All Systems Reviewed And Found Negative. Constitutional: Positive for: Other (body aches). Negative for: Fever ENT: Positive for: Throat Pain Cardiovascular: Negative for: Chest Pain Respiratory: Positive for: Cough. Negative for: Shortness of Breath, Sputum Gastrointestinal: Negative for: Nausea, Vomiting, Diarrhea Physical Exam - Physical Exam Appears: Non-toxic, No Acute Distress Skin: Normal Color, Warm, Dry Head: Atraumatic, Normacephalic Eye(s): bilateral: Normal Inspection, PERRL, EOMI Nose: Normal Throat: Erythema (Mild pharyngeal ) Neck: Normal Cardiovascular: Rhythm Regular, No Murmur Respiratory: Normal Breath Sounds, No Accessory Muscle Use, No Wheezing Gastrointestinal/Abdominal: Normal Exam, No Tenderness, No Distention Back: Normal Inspection Extremity: Normal ROM Neurological/Psych: Oriented x3 ED Course And Treatment O2 Sat by Pulse Oximetry: 97 (RA) Pulse Ox Interpretation: Normal Medical Decision Making Medical Decision Making: Time: 20:16 Initial Plan: --Motrin Tab 600 mg PO --Tamiflu Cap 75 mg PO --Tylenol 325 mg tab; 600 mg PO --Influenza A B Disposition Counseled Patient/Family Regarding: Diagnosis, Need For Followup - Disposition Referrals: [facility] [Outside] Disposition: HOME/ ROUTINE Disposition Time: 20:51 Condition: STABLE Additional Instructions: ENCOURAGE FLUIDS TAKE MEDICATION PRESCRIBED FOLLOW UP WITH PMD IN 2-3 DAYS FOR RE-EVALUATION. RETURN TO ED IF ANY WORSENING OR NEW CHANGES. Instructions: Influenza (ED) Forms: [facility] (Lithuanian) - Clinical Impression Clinical Impression: Influenza-like illness - Scribe Statement The provider has reviewed the documentation as recorded by the Scribe Julianna Gasca All medical record entries made by the Scribe were at my direction and personally dictated by me. I have reviewed the chart and agree that the record accurately reflects my personal performance of the history, physical exam, medical decision making, and the department course for this patient. I have also personally directed, reviewed, and agree with the discharge instructions and disposition.
== END 2017-09-04 21:30 | disposition home or self-care (01) ==
LOC: C.ER 19:54
DX: J11.1 Influenza due to unidentified influenza virus with other respiratory manifestations (principal)

== ENCOUNTER 2018-09-29 21:03 | Emergency (ER) | payer SELFPAY ==
[2018-09-29 21:03] VITALS: BMI 26.6
[2018-09-29 21:28] VITALS: BP 135/87; PULSE 96; RESP 16; TEMP 97.8; O2SAT 97
--- NOTE | 2018-09-29 22:14 | C.PDOC ---
History Of Present Illness 33 yr old male w/ hx of TIA non-compliant on plavix, etoh abuse p/w abdominal pain and bloody stool. Pt notes abdominal pain started 2 weeks ago, epigastric without radiation, throbbing. He also notes BRBPR on wiping and some mild bloody stool which would not fill the toilet bowl. No fall or trauma. No other blood thinners. No nausea or vomiting. Last BM was this morning, mildly bloody. No dark stool. No chest pain. No shortness of breath. No headache, fever, chills or night sweats. No new medications. No other complaints. Time Seen by Provider: 09/29/18 22:14 Chief Complaint (Nursing): Abdominal Pain Past Medical History Vital Signs: Last Vital Signs Temp 97.8 F 09/29/18 21:26 Pulse 96 H 09/29/18 21:26 Resp 16 09/29/18 21:26 BP 135/87 09/29/18 21:26 Pulse Ox 97 09/29/18 21:26 - Medical History PMH: Depression, HTN Denies: Diabetes, Hepatitis, HIV, Chronic Kidney Disease, Seizures, Sexually Transmitted Disease - [facility] Procedures DETOXIFICATION SERVICES FOR SUBSTANCE ABUSE TREATMENT (01/30/17) INDIV PSYCHOTHERAPY FOR SUBSTANCE ABUSE TREATMENT, SUPPORT (01/30/17) INDIV PSYCHOTHERAPY FOR SUBSTANCE ABUSE, COGNITIV BEHAVIORAL (01/30/17) INDIV PSYCHOTHERAPY FOR SUBSTANCE ABUSE, PSYCHOEDUCATION (01/30/17) MEDICATION MANAGEMENT (12/19/16) Family History: States: Unknown Family Hx - Social History Hx Tobacco Use: Yes (<10 cigarettes daily) Hx Alcohol Use: Yes Hx Substance Use: Yes - Immunization History Hx Tetanus Toxoid Vaccination: Yes Hx Influenza Vaccination: Yes Hx Pneumococcal Vaccination: No Review Of Systems Constitutional: Negative for: Fever, Chills, Sweats, Weakness, Malaise Eyes: Negative for: Pain, Vision Change ENT: Negative for: Ear Pain, Ear Discharge, Nose Pain, Nose Congestion, Mouth Pain Cardiovascular: Negative for: Chest Pain, Palpitations, Orthopnea Respiratory: Negative for: Cough, Shortness of Breath, Hemoptysis, SOB with Excertion, Pleuritic Pain Gastrointestinal: Positive for: Abdominal Pain, Hematochezia. Negative for: Nausea, Vomiting, Diarrhea, Constipation, Melena, Hematemesis, Rectal Pain Genitourinary: Negative for: Dysuria, Frequency, Incontinence Musculoskeletal: Negative for: Neck Pain, Shoulder Pain, Arm Pain Skin: Negative for: Rash, Lesions Neurological: Negative for: Weakness, Numbness, Incoordination Psych: Negative for: Anxiety, Depression Physical Exam - Physical Exam Appears: Well, Non-toxic, No Acute Distress Skin: Normal Color, Warm Head: Atraumatic, Normacephalic Eye(s): bilateral: Normal Inspection, PERRL, EOMI Ear(s): Bilateral: Normal Nose: Normal, No Flaring, No Discharge Oral Mucosa: Moist, Dry Tongue: Normal Appearing Lips: Normal Appearing Teeth: Normal Dentition Gingiva: Normal Appearing Throat: Normal Neck: Normal, Normal ROM, Supple, Other (no meningeal signs) Chest: Symmetrical, No Deformity, No Tenderness Cardiovascular: Rhythm Regular, No Rhythm Irregular, No Friction Rub, No Murmur Respiratory: Normal Breath Sounds, No Decreased Breath Sounds, No Accessory Muscle Use, No Rales, No Rhonchi, No Stridor, No Wheezing, No Plerual Rub Gastrointestinal/Abdominal: No Normal Exam, No Bowel Sounds, Soft, Tenderness (epigastric), No Organomegaly, No Mass Rectal: Rectal Tone (normal), No Maroon Stool, No Melena, No Blood Streaked Stool, Hemorrhoids (non thrombossed at 6 oclock), No Mass, No Tenderness Back: Normal Inspection, No CVA Tenderness, No Vertebral Tenderness Extremity: Normal ROM, No Tenderness, No Calf Tenderness, No Swelling Extremity: Bilateral: Atraumatic Neurological/Psych: Oriented x3, Normal Speech, Normal Cognition, Cerebellar Signs, Normal Motor Gait: Steady ED Course And Treatment - Laboratory Results Result Diagrams: 09/29/18 22:40 09/29/18 22:40 O2 Sat by Pulse Oximetry: 97 Medical Decision Making Medical Decision Makin yr old male p/w abdominal pain and bloody stool. Rectal exam w/ out maroon stool or melenotic stool. No BRBPR on my exam. External, non thrombosed hemorrhoid noted. Epigastric abdominal pain noted as well. Likely hemrhoid associated bloody stool. Will seek imaging given hx of ETOH abuse and epigastric pain as well. Pending imaging and labs. 1242 labs largely unremarkable pending imaging pt in NAD 0213 repeat abd exam unremarkable, non-ttp w/ out peritoneal signs gastroparesis on CT however pt notes evacuating his bowels without issue and denies any N/V tolerating clears here in ED clear for d/c home with return indications and followup to follow w/ GI and PMD / clinic CT Abdomen and Pelvis with IV Contrast IMPRESSION: Significant food residue in the distended stomach suggestive of gastroparesis. Limited by motion artifact. Uncomplicated colonic diverticulosis. No evidence of acute abdominal or pelvic pathology. Disposition - Disposition Referrals: Reji Chapin [Staff Provider] - Shaik Leahy MD [Staff Provider] - [facility]Outside[facility] [Outside] Disposition: HOME/ ROUTINE Disposition Time: 02:13 Condition: GOOD Additional Instructions: RICHI BUSTILLOS, thank you for letting us take care of you today. Your provider was Sachin Tobin and you were treated for BLOOD IN STOOL. The emergency medical care you received today was directed at your acute symptoms. If you were prescribed any medication, please fill it and take as directed. It may take several days for your symptoms to resolve. Return to the Emergency Department if your symptoms worsen, do not improve, or if you have any other problems. Please contact your doctor or call one of the physicians/clinics you have been referred to that are listed on the Patient Visit Information form that is included in your discharge packet. Bring any paperwork you were given at discharge with you along with any medications you are taking to your follow up visit. Our treatment cannot replace ongoing medical care by a primary care provider outside of the emergency department. Thank you for allowing the [facility] team to be part of your care today. If you had an X-Ray or CT scan: A Radiologist will review the ED reading if any change in treatment is needed we will contact you. If you had a blood, urine, or wound culture: It will take several days for the results, if any change in treatment is needed we will contact you. If you had an STI test: It will take 48 hours for the results. Please call after 1 week if you have not heard back. Instructions: Hemorrhoids, Gastrointestinal Bleeding (DC), Bloody Stools, Adult (DC) Forms: [facility] (Slovak) - Clinical Impression Clinical Impression: Bloody stool
[2018-09-29 22:50] LABS: BASO # 0.1 K/uL (0.0-0.2); BASO % 1.3 % (0.0-2.0); EOS # 0.1 K/uL (0.0-0.7); EOS % 1.4 % (0.0-4.0); HEMOGLOBIN 14.8 g/dL (12.0-18.0); LYMPH # 4.2 K/uL (1.0-4.3); LYMPH % 49.8 % (20.0-40.0); MEAN CELL VOLUME 93.5 fL (80.0-94.0); MEAN CORPUSCULAR HEMOGLOBIN 32.1 pg (27.0-31.0); MEAN CORPUSCULAR HGB CONC 34.3 g/dL (33.0-37.0); MEAN PLATELET VOLUME 8.2 fL (7.2-11.7); MONO # 0.4 K/uL (0.0-0.8); MONO % 5.3 % (0.0-10.0); NEUT # 3.6 K/uL (1.8-7.0); NEUT % 42.2 % (50.0-75.0); NRBC % 0.1 % (0.0-2.0); RBC 4.63 Mil/uL (4.40-5.90); RED CELL DISTRIBUTION WIDTH 12.5 % (11.5-14.5); WHITE BLOOD COUNT 8.4 K/uL (4.8-10.8)
[2018-09-29 22:58] LABS: PROTHROMBIN TIME 10.6 SECONDS (9.7-12.2)
[2018-09-29 23:03] LABS: ALB/GLOB RATIO 1.6 (1.0-2.1); ALBUMIN 4.8 g/dL (3.5-5.0); ALT/SGPT 64 U/L (21-72); AST/SGOT 49 U/L (17-59); BLOOD UREA NITROGEN 16 mg/dL (9-20); CALCIUM 8.9 mg/dl (8.6-10.4); GFR NON-AFRICAN AMERICAN > 60; LIPASE 68 U/L (23-300)
[2018-09-29 23:11] LABS: URINE BILIRUBIN NEGATIVE (NEGATIVE); URINE BLOOD NEGATIVE (NEGATIVE); URINE CLARITY Clear (Clear); URINE COLOR Yellow (YELLOW); URINE GLUCOSE (UA) NORMAL (Normal); URINE LEUKOCYTE ESTERASE NEG Leu/uL (Negative); URINE PROTEIN NEGATIVE (NEGATIVE); URINE UROBILINOGEN NORMAL mg/dL (0.2-1.0)
[2018-09-29] MEDS ORDERED: Iodixanol 320 MG/ML 100 ML BOTTLE IV ONE (23:20)
--- NOTE | 2018-09-30 12:39 | CT ---
Date of service: 09/29/2018 PROCEDURE: CT Abdomen and pelvis. HISTORY: Epigastric pain. Bloody stool. COMPARISON: None. TECHNIQUE: Contiguous axial images of the abdomen and pelvis performed following intravenous injection of approximately Omnipaque 300 contrast material. Additional 2D sagittal and coronal reformats generated. Radiation dose: Total exam DLP = 2559.73 mGy-cm. This CT exam was performed using one or more of the following dose reduction techniques: Automated exposure control, adjustment of the mA and/or kV according to patient size, and/or use of iterative reconstruction technique. FINDINGS: LOWER THORAX: Mild passive/dependent type atelectasis both. Posterior lung bases. No effusion or basilar pneumothorax. Heart appears mildly enlarged.. No significant pericardial effusion. There is a small hiatal hernia. LIVER: Unremarkable. No gross lesion or ductal dilatation. GALLBLADDER AND BILE DUCTS: Unremarkable. PANCREAS: Pancreas is slightly atrophic and fatty replaced. No pancreatic masses or collections. SPLEEN: Unremarkable. No splenomegaly. ADRENALS: Unremarkable. KIDNEYS AND URETERS: Unremarkable. No stone or hydronephrosis. BLADDER: Urinary bladder is incompletely distended which in part accounts for thick-walled appearance. Muscular hypertrophy presumably contributes. Possibility of a cystitis not excluded. REPRODUCTIVE: Prostate gland measures approximately 4.45 cm in transverse dimension. Prostatic calcifications are present. APPENDIX: Normal appendix best seen on axial series 7 image number [id number]. No periappendiceal inflammatory changes. BOWEL: Mild motion artifact limits evaluation of the much of the bowel The stomach is distended with food debris and a small amount of air. Evaluation of the small bowel is quite limited as mentioned above however a multiple fluid-filled loops of small bowel are present some of which exhibit minimal wall thickening. Rule out enteritis. Scattered colonic diverticula seen along the sigmoid and to a lesser degree distal descending colon.. There is slight wall thickening of a short segment of the proximal descending colon which may be due to incomplete distention peristalsis and unopacified stool however the possibility of a mild early acute diverticulitis cannot be excluded clinical correlation recommended.. PERITONEUM: Unremarkable. No fluid collection. No free air. Small fat containing bilateral inguinal hernias. The LYMPH NODES: Unremarkable. No enlarged lymph nodes. VASCULATURE: No aortic aneurysm. No aortic atherosclerotic calcification or mural plaque present.. Note is made of what appears to represent an elliptical shaped on focus of fat that may be adjacent to and compresses the hepatic portion of the IVC or less likely within the wall of the hepatic portion of the IVC. This is not felt to represent thrombosis. The BONES: No fracture or destructive lesion. OTHER FINDINGS: None. IMPRESSION: Significant motion artifact limits evaluation of much of the bowel. Possible mild enteritis. Diverticulosis with slight wall thickening short segment proximal sigmoid colon which could be secondary to incomplete distension peristalsis and unopacified bowel however the possibility of a mild early acute diverticulitis not excluded.. No evidence of acute appendicitis. Questionable gastroparesis. Urinary bladder wall thickening likely due to incomplete distention and muscular hypertrophy however cystitis not excluded.. Note this report was placed in PA review folder for follow up
== END 2018-09-30 02:43 | disposition home or self-care (01) ==
LOC: C.ER 21:03
DX: K92.1 Melena (principal); I10 Essential (primary) hypertension
CPT/HCPCS: 74177; 80053; 81001; 83690; 85025; 85610; 85730; 86850; 86900; 96374; 99284; G0328; Q9967

== ENCOUNTER 2018-10-26 09:44 | Emergency (ER) | payer SELFPAY ==
[2018-10-26 09:44] VITALS: BMI 26.6
[2018-10-26 09:50] VITALS: TEMP 98; O2SAT 97
--- NOTE | 2018-10-26 10:50 | C.PDOC ---
History Of Present Illness 33 y/o male with hx cva, htn (non compliant with medication), daily drinker of 4-5 beers and occasional cigarette and marijuana smoker, c/o epigastric and left upper quadrant abdominal pain for several months. no nausea or vomiting. pt also reports feeling sob on occasion, no cough. fever or chills. c/o blood when wiping after bm sometimes, pt seen in ed a few weeks ago and walked out prior to receiving discharge instructions. pt had ct at that time with no acute findings. . Time Seen by Provider: 10/26/18 09:50 Chief Complaint (Nursing): Abdominal Pain History Per: Patient History/Exam Limitations: no limitations Onset/Duration Of Symptoms: Unknown Current Symptoms Are (Timing): Still Present Location Of Pain/Discomfort: Epigastric, LUQ Radiation Of Pain To:: None Quality Of Discomfort: "Pain" Associated Symptoms: Other (SOB). denies: Fever, Chills, Nausea, Vomiting Exacerbating Factors: None Alleviating Factors: None Past Medical History Reviewed: Historical Data, Nursing Documentation, Vital Signs Vital Signs: Last Vital Signs Temp 98 F 10/26/18 09:49 Pulse 96 H 10/26/18 09:49 Resp 18 10/26/18 10:14 BP 142/95 H 10/26/18 09:49 Pulse Ox 97 10/26/18 09:49 - Medical History PMH: Depression, HTN Denies: Diabetes, Hepatitis, HIV, Chronic Kidney Disease, Seizures, Sexually Transmitted Disease Surgical History: No Surg Hx - [facility] Procedures DETOXIFICATION SERVICES FOR SUBSTANCE ABUSE TREATMENT (01/30/17) INDIV PSYCHOTHERAPY FOR SUBSTANCE ABUSE TREATMENT, SUPPORT (01/30/17) INDIV PSYCHOTHERAPY FOR SUBSTANCE ABUSE, COGNITIV BEHAVIORAL (01/30/17) INDIV PSYCHOTHERAPY FOR SUBSTANCE ABUSE, PSYCHOEDUCATION (01/30/17) MEDICATION MANAGEMENT (12/19/16) Family History: States: Unknown Family Hx - Social History Hx Tobacco Use: Yes (<10 cigarettes daily) Hx Alcohol Use: Yes Hx Substance Use: Yes - Immunization History Hx Tetanus Toxoid Vaccination: Yes Hx Influenza Vaccination: No Hx Pneumococcal Vaccination: No Review Of Systems Constitutional: Negative for: Fever, Chills, Sweats, Weakness Respiratory: Positive for: Shortness of Breath. Negative for: Cough Gastrointestinal: Positive for: Abdominal Pain (epigastric and left upper quadrant area), Other (reports blood when wiping after BM). Negative for: Nausea, Vomiting Neurological: Negative for: Weakness, Numbness, Dizziness Physical Exam - Physical Exam Appears: Non-toxic Skin: Normal Color, Warm, Dry Head: Atraumatic, Normacephalic Neck: Normal ROM, Supple Chest: Symmetrical, No Deformity Cardiovascular: Rhythm Regular, No Murmur Respiratory: No Accessory Muscle Use, No Rales, No Rhonchi, No Wheezing Gastrointestinal/Abdominal: Bowel Sounds (normoactive), Soft, Tenderness (epigastric and left upper quadrant area), No Distention, No Guarding Extremity: No Pedal Edema, Capillary Refill (<2 seconds) Pulses: Left Dorsalis Pedis: Normal, Right Dorsalis Pedis: Normal Neurological/Psych: Oriented x3 ED Course And Treatment - Laboratory Results Result Diagrams: 10/26/18 11:00 10/26/18 11:00 O2 Sat by Pulse Oximetry: 97 (in RA) Medical Decision Making Medical Decision Making: Impression: 33 year old male with c/o epigastric and left upper quadrant abdo javier pain. Plan: Labs ordered with UA, drug screen, and stool sample. Patient given Maalox PO and Pepcid IVP Re-eval: Patient reports feeling better after having Maalox. Disposition Counseled Patient/Family Regarding: Studies Performed, Diagnosis, Need For Followup, Rx Given - Disposition Referrals: Fernando Luna MD [Staff Provider] - Disposition: HOME/ ROUTINE Disposition Time: 12:26 Condition: GOOD Additional Instructions: Stop drinking alcohol and other drugs. Take protonix and norvasc as prescribed. Follow up with medical doctor and with Piano Technician as soon as possible. Have your blood pressure checked in a few days. Prescriptions: amLODIPine [Norvasc] 5 mg PO DAILY #20 tab Pantoprazole [Protonix EC Tab] 40 mg PO DAILY #30 ect Instructions: Gastritis (DC) Forms: General Discharge Instructions, [facility] (Filipino), Work Excuse - Clinical Impression Clinical Impression: Gastritis - PA / JUNIOR ORACLE DBA / Resident Statement MD/DO has reviewed & agrees with the documentation as recorded. (Roxann Yoder) - Scribe Statement The provider has reviewed the documentation as recorded by the Scribe (Roxann Yoder) All medical record entries made by the Scribe were at my direction and personally dictated by me. I have reviewed the chart and agree that the record accurately reflects my personal performance of the history, physical exam, medical decision making, and the department course for this patient. I have also personally directed, reviewed, and agree with the discharge instructions and disposition.
[2018-10-26 11:09] LABS: BASO % 0.6 % (0.0-2.0); EOS # 0.1 K/uL (0.0-0.7); EOS % 0.8 % (0.0-4.0); HEMOGLOBIN 16.1 g/dL (12.0-18.0); LYMPH # 1.8 K/uL (1.0-4.3); LYMPH % 26.7 % (20.0-40.0); MEAN CELL VOLUME 93.7 fL (80.0-94.0); MEAN CORPUSCULAR HEMOGLOBIN 33.1 pg (27.0-31.0); MEAN CORPUSCULAR HGB CONC 35.3 g/dL (33.0-37.0); MEAN PLATELET VOLUME 8.5 fL (7.2-11.7); MONO # 0.5 K/uL (0.0-0.8); MONO % 6.8 % (0.0-10.0); NEUT # 4.5 K/uL (1.8-7.0); NEUT % 65.1 % (50.0-75.0); NRBC % 0.1 % (0.0-2.0); RBC 4.86 Mil/uL (4.40-5.90); RED CELL DISTRIBUTION WIDTH 12.7 % (11.5-14.5); WHITE BLOOD COUNT 6.9 K/uL (4.8-10.8)
[2018-10-26 11:13] LABS: URINE BILIRUBIN NEGATIVE (NEGATIVE); URINE BLOOD NEGATIVE (NEGATIVE); URINE CLARITY Clear (Clear); URINE COLOR Yellow (YELLOW); URINE GLUCOSE (UA) NORMAL (Normal); URINE LEUKOCYTE ESTERASE NEG Leu/uL (Negative); URINE PROTEIN NEGATIVE (NEGATIVE); URINE UROBILINOGEN NORMAL mg/dL (0.2-1.0)
[2018-10-26 11:22] LABS: INR 1.1; PROTHROMBIN TIME 12.1 SECONDS (9.7-12.2)
[2018-10-26] MEDS ORDERED: Aluminum Hydroxide/Magnesium Hydroxide Susp (30 mL) PO STA (11:31)
[2018-10-26 11:34] LABS: ALB/GLOB RATIO 1.5 (1.0-2.1); ALBUMIN 4.9 g/dL (3.5-5.0); ALT/SGPT 63 U/L (21-72); AST/SGOT 70 U/L (17-59); BLOOD UREA NITROGEN 12 mg/dL (9-20); CALCIUM 9.9 mg/dl (8.6-10.4); GFR NON-AFRICAN AMERICAN 58; LIPASE 27 U/L (23-300)
[2018-10-26 11:36] LABS: BARBITURATES, UR NEGATIVE (NEGATIVE); BENZODIAZEPINES, UR NEGATIVE (NEGATIVE); OPIATES, UR NEGATIVE (NEGATIVE); PHENCYCLIDINE, UR NEGATIVE (NEGATIVE)
[2018-10-26 11:42] LABS: B-TYPE NATRIURETIC PEPTIDE 27.7 pg/mL (0-450)
[2018-10-26] MEDS ORDERED: Aluminum Hydroxide/Magnesium Hydroxide Susp (30 mL) ONE (11:58)
[2018-10-26 12:23] VITALS: BP 153/103; PULSE 85; RESP 17
== END 2018-10-26 12:36 | disposition home or self-care (01) ==
LOC: C.ER 09:44
DX: K29.70 Gastritis, unspecified, without bleeding (principal); I10 Essential (primary) hypertension; F17.210 Nicotine dependence, cigarettes, uncomplicated; Z86.73 Personal history of transient ischemic attack (TIA), and cerebral infarction without residual deficits
CPT/HCPCS: 80053; 81001; 83690; 83880; 85025; 85610; 85730; 96374; 99285; G0328; G0480

== ENCOUNTER 2018-11-28 13:56 | Emergency (ER) | payer MEDICAID, OTHER ==
[2018-11-28 13:57] VITALS: BMI 26.6
--- NOTE | 2018-11-28 15:33 | C.PDOC ---
History Of Present Illness 33-year-old male presents to the ED for evaluation of productive cough associated with generalized body aches, subjective fever and chills for two days. Patient states his cough is productive of yellow/dark phlegm. He denies sore throat, chest pain, nausea, vomiting, abdominal pain, sick contacts or seasonal allergies. Time Seen by Provider: 11/28/18 14:29 Chief Complaint (Nursing): Flu-like Symptoms History Per: Patient History/Exam Limitations: no limitations Onset/Duration Of Symptoms: Days (2) Current Symptoms Are (Timing): Still Present Associated Symptoms: Fever, Chills, Cough, Sputum. denies: Sore Throat, Nausea, Vomiting Additional History Per: Patient Past Medical History Reviewed: Historical Data, Nursing Documentation, Vital Signs Vital Signs: Last Vital Signs Temp 99 F 11/28/18 14:04 Pulse 74 11/28/18 14:04 Resp 18 11/28/18 14:04 BP 149/88 11/28/18 14:04 Pulse Ox 96 11/28/18 14:04 Primary Care Provider: Helder Leahy MD - Medical History PMH: Depression, HTN Denies: Diabetes, Hepatitis, HIV, Chronic Kidney Disease, Seizures, Sexually Transmitted Disease Surgical History: No Surg Hx - [facility] Procedures DETOXIFICATION SERVICES FOR SUBSTANCE ABUSE TREATMENT (01/30/17) INDIV PSYCHOTHERAPY FOR SUBSTANCE ABUSE TREATMENT, SUPPORT (01/30/17) INDIV PSYCHOTHERAPY FOR SUBSTANCE ABUSE, COGNITIV BEHAVIORAL (01/30/17) INDIV PSYCHOTHERAPY FOR SUBSTANCE ABUSE, PSYCHOEDUCATION (01/30/17) MEDICATION MANAGEMENT (12/19/16) Family History: States: Unknown Family Hx - Social History Hx Tobacco Use: Yes (<10 cigarettes daily) Hx Alcohol Use: Yes Hx Substance Use: Yes - Immunization History Hx Tetanus Toxoid Vaccination: Yes Hx Influenza Vaccination: No Hx Pneumococcal Vaccination: No Review Of Systems Constitutional: Negative for: Fever, Chills ENT: Negative for: Throat Pain Cardiovascular: Negative for: Chest Pain Respiratory: Positive for: Cough, Sputum Gastrointestinal: Negative for: Nausea, Vomiting, Abdominal Pain Physical Exam - Physical Exam Appears: Non-toxic, No Acute Distress Skin: Normal Color, Warm, Dry Head: Atraumatic, Normacephalic Eye(s): bilateral: Normal Inspection Ear(s): Bilateral: Normal Nose: Normal, No Discharge Oral Mucosa: Moist Throat: Normal, No Erythema, No Exudate Neck: Normal ROM, Supple Chest: Symmetrical, No Deformity, No Tenderness Cardiovascular: Rhythm Regular, No Murmur Respiratory: Normal Breath Sounds, No Rales, No Rhonchi, No Wheezing Gastrointestinal/Abdominal: Soft, No Tenderness, No Guarding, No Rebound Extremity: Normal ROM, Capillary Refill (less than 2 seconds ) Neurological/Psych: Oriented x3, Normal Speech, Normal Cognition ED Course And Treatment O2 Sat by Pulse Oximetry: 96 (on RA) Pulse Ox Interpretation: Normal Medical Decision Making Medical Decision Making: Impression: 33 year old male with cough, generalized body aches Plan: * Flu swab * Tessalon Perles * reassess and disposition Progress: Flu swab ordered and reviewed, resulted negative. Tessalon Perles PO given. On reassessment, patient is resting comfortably, showing no signs of distress and is stable for discharge. Advised to f/u with PMD within 1-2 days for further evaluation. Disposition Counseled Patient/Family Regarding: Studies Performed, Diagnosis, Need For Followup, Rx Given - Disposition Referrals: Helder Leahy MD [Non-Staff] - Disposition: HOME/ ROUTINE Disposition Time: 15:31 Condition: STABLE Additional Instructions: Continue meds as instructed Rest and Hydration Follow up with PMD in 1-2 days Return to the ED if symptoms worsen Prescriptions: Benzonatate [Tessalon Perles] 100 mg PO TID #30 sgl Pseudoephedrine HCl [Sudafed 12-Hour] 120 mg PO BID PRN #14 tablet.er PRN Reason: Sinus Symptoms Instructions: Cough, Runny Nose, and the Common Cold (DC) Forms: [employer] (Romanian) - Clinical Impression Clinical Impression: Cough - PA / DIVISION MANAGER / Resident Statement MD/DO has reviewed & agrees with the documentation as recorded. - Scribe Statement The provider has reviewed the documentation as recorded by the Scribe (Charis Lopez) All medical record entries made by the Scribe were at my direction and personally dictated by me. I have reviewed the chart and agree that the record accurately reflects my personal performance of the history, physical exam, medical decision making, and the department course for this patient. I have also personally directed, reviewed, and agree with the discharge instructions and disposition.
[2018-11-28 15:39] VITALS: BP 135/79; PULSE 75; RESP 16; TEMP 99.1
[2018-11-28 18:26] VITALS: O2SAT 96
== END 2018-11-28 15:37 | disposition home or self-care (01) ==
LOC: C.ER 13:56
DX: R05 Cough (principal); F17.210 Nicotine dependence, cigarettes, uncomplicated; I10 Essential (primary) hypertension